=== PATIENT | male | born 1940 | race Caucasian/White ===

== ENCOUNTER 2016-06-29 17:16 | Inpatient (IN) | payer OTHER ==
[2016-06-29] MEDS ORDERED: SALINE 3% 15 ML NEB TX ONE (18:01)
[2016-06-29] MEDS ORDERED: SALINE 3% 15 ML NEB TX NEB ONE (18:03)
[2016-06-29] MEDS: XOPENEX 1.25 MG/3 ML NEB SCH ×2 (18:13→20:50)
[2016-06-29] MEDS: ZITHROMAX INJ 500 MG VIAL 500 MG in NS 250 ML IV 250 ML IV SCH (18:50)
[2016-06-29] MEDS: NS 1000 ML 1,000 ML IV SCH (18:50)
[2016-06-29 18:56] LABS: BASOPHILS % (AUTO) 0.4 % (0.2-1.0); EOSINOPHILS # (AUTO) 0.1 x10^3/uL (0.0-0.2); EOSINOPHILS % (AUTO) 0.5 % (0.9-2.9); HEMATOCRIT 39.2 % (42.0-54.0); HEMOGLOBIN 12.9 g/dL (13.5-18.0); LYMPHOCYTES # (AUTO) 1.3 X10^3/uL (1.3-2.9); MEAN CORPUSCULAR HEMOGLOBIN 25.3 pg (27.0-34.0); MEAN CORPUSCULAR VOLUME 76.7 fL (80.0-100.0); MEAN PLATELET VOLUME 8.1 fL (7.4-11.0); MONOCYTES # (AUTO) 3.1 x10^3/uL (0.3-0.8); MONOCYTES % (AUTO) 31.1 % (0.0-13.0); NEUTROPHILS # (AUTO) 5.5 x10^3/uL (2.2-4.8); PLATELET COUNT 212 X10^3/uL (150.0-450.0); RED BLOOD COUNT 5.11 X10^6/uL (4.7-6.0); RED CELL DISTRIBUTION WIDTH 23.2 % (11.6-16.5)
[2016-06-29 19:06] LABS: ALANINE AMINOTRANSFERASE 19 Units/L (12-78); ALBUMIN 3.1 g/dL (3.4-5.0); ALKALINE PHOSPHATASE 61 Units/L (46-116); ASPARTATE AMINO TRANSFERASE 12 Units/L (15-37); BLOOD UREA NITROGEN 12 mg/dL (7-18); CALCIUM 8.5 mg/dL (8.5-10.1); CARBON DIOXIDE 27.4 mmol/L (21-32); CHLORIDE 103 mmol/L (98-107); COR CA(FOR HYPOALB) 9.2 mg/dL (8.5-10.1); CREATININE 0.91 mg/dL (0.70-1.30); GLUCOSE 96 mg/dL (65-99); SODIUM 138 mmol/L (136-145); TOTAL PROTEIN 6.4 g/dL (6.4-8.2); eGFR BLACK RACES > 60 (>60); eGFR NON BLACK RACES > 60 (>60)
[2016-06-29 19:10] LABS: BAND NEUTROPHILS % 10 % (0-10)
[2016-06-29 19:11] LABS: HYPOCHROMASIA SLIGHT; METAMYELOCYTES % 3; MYELOCYTES % 5; PLATELET MORPHOLOGY COMMENT NORMAL (NORMAL)
[2016-06-29 19:12] LABS: ANISOCYTOSIS 2+
[2016-06-29] MEDS: LEVAQUIN PREMIX IV 500 MG 500 MG/100 ML BAG IV SCH (21:25)
[2016-06-29] MEDS: SOLU-Medrol 40 MG VIAL IVP SCH (21:25)
--- NOTE | 2016-06-30 04:41 | RAD ---
Chest, two views Indication: Bronchitis Comparison: 12/04/2015 Findings: Cardiac silhouette is unremarkable. The lungs are mildly hypoinflated, but essentially bridgett ar, without dense infiltrate or large pleural effusion. The bony thorax is unremarkable. Impression: No acute cardiopulmonary disease or significant change from prior. Reported By:
[2016-06-30 04:57] LABS: BASOPHILS % (AUTO) 0.1 % (0.2-1.0); EOSINOPHILS % (AUTO) 0.1 % (0.9-2.9); HEMATOCRIT 39.8 % (42.0-54.0); HEMOGLOBIN 12.9 g/dL (13.5-18.0); LYMPHOCYTES # (AUTO) 0.4 X10^3/uL (1.3-2.9); LYMPHOCYTES % (AUTO) 6.8 % (21.0-51.0); MEAN CORPUSCULAR HEMOGLOBIN 25.3 pg (27.0-34.0); MEAN CORPUSCULAR HGB CONC 32.6 g/dL (33.0-35.0); MEAN CORPUSCULAR VOLUME 77.7 fL (80.0-100.0); MEAN PLATELET VOLUME 8.5 fL (7.4-11.0); MONOCYTES # (AUTO) 0.4 x10^3/uL (0.3-0.8); MONOCYTES % (AUTO) 7.5 % (0.0-13.0); NEUTROPHILS # (AUTO) 4.5 x10^3/uL (2.2-4.8); NEUTROPHILS % (AUTO) 85.5 % (42.0-75.0); PLATELET COUNT 196 X10^3/uL (150.0-450.0); RED BLOOD COUNT 5.12 X10^6/uL (4.7-6.0); WHITE BLOOD COUNT 5.3 X10^3/uL (3.6-10.0)
[2016-06-30 05:09] LABS: ALANINE AMINOTRANSFERASE 18 Units/L (12-78); ALBUMIN 2.8 g/dL (3.4-5.0); ALKALINE PHOSPHATASE 57 Units/L (46-116); ASPARTATE AMINO TRANSFERASE 11 Units/L (15-37); BLOOD UREA NITROGEN 12 mg/dL (7-18); CALCIUM 8.5 mg/dL (8.5-10.1); CARBON DIOXIDE 26.8 mmol/L (21-32); CHLORIDE 107 mmol/L (98-107); COR CA(FOR HYPOALB) 9.5 mg/dL (8.5-10.1); COR NA(FOR HYPERGLY) 144 mmol/L (136-145); CREATININE 0.81 mg/dL (0.70-1.30); GLUCOSE 156 mg/dL (65-99); SODIUM 143 mmol/L (136-145); TOTAL PROTEIN 6.2 g/dL (6.4-8.2); eGFR BLACK RACES > 60 (>60); eGFR NON BLACK RACES > 60 (>60)
[2016-06-30 05:53] LABS: ANISOCYTOSIS 2+; BAND NEUTROPHILS % 8 % (0-10); PLATELET MORPHOLOGY COMMENT NORMAL (NORMAL)
[2016-06-30] MEDS: SOLU-Medrol 40 MG VIAL IVP SCH ×2 (06:05→14:06)
[2016-06-30] MEDS: LEVAQUIN PREMIX IV 500 MG 500 MG/100 ML BAG IV SCH (08:31)
[2016-06-30] MEDS: ZITHROMAX INJ 500 MG VIAL 500 MG in NS 250 ML IV 250 ML IV SCH (08:31)
[2016-06-30] MEDS: XOPENEX 1.25 MG/3 ML NEB SCH ×5 (08:36→20:48)
[2016-06-30] MEDS: PATIENT'S HOME MEDICATION PO SCH ×2 (09:41→21:41)
[2016-06-30] MEDS ORDERED: COUMADIN TAB 2.5 MG PO SCH (11:00)
[2016-06-30] MEDS ORDERED: ARTIFICIAL TEARS DROPS AFFEYE PRN (11:27)
[2016-06-30] MEDS ORDERED: [UNRECOGNIZED DRUG - OTHER] OP SCH (11:30)
[2016-06-30] MEDS ORDERED: [UNRECOGNIZED DRUG - OTHER] PO SCH (11:30)
[2016-06-30] MEDS ORDERED: FLUTICASONE FUROATE SCH (11:30)
[2016-06-30] MEDS ORDERED: [UNRECOGNIZED DRUG - OTHER] PO SCH (11:30)
[2016-06-30] MEDS ORDERED: [UNRECOGNIZED DRUG - OTHER] PO SCH (11:30)
--- NOTE | 2016-06-30 11:31 | DR.H&P ---
H&P - History & Physical for Day of: H&P Date: 06/29/16 - Chief Complaint Chief Complaint: fever, ccc - Allergies Allergies/Adverse Reactions: Allergies Allergy/AdvReac Type Severity Reaction Status Date / Time Allopurinol Allergy Verified 06/29/16 18:00 Diltiazem Allergy Verified 06/29/16 18:14 - History of Present Illness History of Present Illness: PT WAS A DIRECT ADMIT PER DR RANGEL AFTER FAILING TO IMPROVE WITH OP TREATMENT OF SINUSITIS AND COUGH. PT HAS BEEN TAKING ORAL ANTIBIOTICS AND USING JET NEBS SINCE LAST THURSDAY. PT HAS CO FEVER, CHILLS AND BODYACHES, PROGRESSING COUGH AND WHEEZING. PT HAS RECENTLY UNDERWENT CARDIAC ABLATION PROCEDURE DUE TO AFIB. PT HAS PMH OF AFIB ON COUMADIN, COPD, AND ASPERGILLUS LUNG INFECTION. PLAN TO ADMIT FOR EVALUATION OF ACUTE ILLNESS, WILL OBTAIN BLOOD AND SPUTUM CULTURES ON ADMISSION. - Past Medical History Past Medical History: Arthritis, COPD, Coronary Artery Disease, Depression, GERD , Gout, Hypertension Additional Medical History: ATOPIC DERMATITIS - Past Surgical History Surgical History: Cholecystectomy, Tonsillectomy - Family History Family Medical History: [place], Hypertension - Social History Does patient currently use any type of tobacco product: No Have you used tobacco products in the last 12 months: No Type of Tobacco Use: None How many years tobacco product used: 5 Alcohol Use: None Drug Use: None - Medications Home Medications: Artificial Tear Solution [Genteal Tears Liquid Drop 0.1-0.2-0.3 %] 1 padma OP BID 06/29/16 [History Confirmed 06/29/16] Finasteride [Proscar] 5 mg PO HS 06/29/16 [History Confirmed 06/29/16] Fluticasone Furoate [Flonase Sensimist] 27.5 mcg NA BID 06/29/16 [History Confirmed 06/29/16] Folic Acid [Folic Acid Tab 1 mg] 1 mg PO DAILY 06/29/16 [History Confirmed 06/29] Krill Oil [Gnp Krill Oil [place]-3 300 mg] 1 cap PO DAILY 06/29/16 [History Confirmed 06/29/16] Magnesium [Magnesium] 400 mg PO DAILY 06/29/16 [History Confirmed 06/29/16] Metoprolol Succinate [Toprol Xl] 50 mg PO BID 06/29/16 [History Confirmed ] Polyethylene Glycol Pwd Btl [MIRALAX. (255 GM BOTTLE) *] 17 gm PO HS 06/29/16 [ History Confirmed 06/29/16] Terazosin HCl [Hytrin] 5 mg PO HS 06/29/16 [History Confirmed 06/29/16] Voriconazole 100 mg PO BID 06/29/16 [History Confirmed 06/29/16] Warfarin Sodium [Coumadin Tab 2.5 mg] 2.5 mg PO DAILY 06/29/16 [History Confirmed 06/29/16] - Review of Systems Constitutional: Fever, Chills, Sweats, Weakness, Malaise Eyes: No Symptoms Reported ENT: Nose Pain, Nose Discharge, Throat Pain Respiratory: Cough, Wheezing Cardiovascular: No Symptoms Reported Gastrointestinal: Nausea Musculoskeletal: No Symptoms Reported Skin: Other (CHRONIC SEVERE DRY SKIN, PRURITIS) Neurological: No Symptoms Reported - Physical Exam Vital Signs: Temperature 97.5 F Pulse Rate [Left Brachial] 60 Pulse Rate [Right Brachial] 56 Pulse Rate 74 Respiratory Rate 18 Blood Pressure [Left Arm] 181/86 Blood Pressure [Right Arm] 145/73 Blood Pressure 123/82 O2 Sat by Pulse Oximetry 97 Oriented: Normal Eyes: Normal Ear: Normal Nose: Normal Throat: Red, Dry Respiratory: Rhonchi Throughout, RLL Diminished, LLL Diminished Cardiovascular: Normal. negative: Edema : Normal Auscultation: Bowel Sounds: Normal Palpation: Normal Tenderness: Normal Skin: Other (DRY) Musculoskeletal: Back:Lumbar Psychiatric: Normal Mood Description: Calm Speech Pattern: Clear, Appropriate - Assessment/Plan (1) Aspergillus Status: Acute (2) Bronchitis Status: Acute Plan: ADMIT, PNEUMONIA PATHWAY, ADMISSION LABS, BLOOD AND SPUTUM CULTURES. REPT THERAPY. XRAY CHEST ON ADMISSION. IV ATBX, IV STEROIDS, IV HYDRATION. FEVER CONTROL, RESUME HOME MEDS (3) Failure of outpatient treatment Status: Acute (4) Atrial fibrillation status post cardioversion Status: Chronic (5) Essential hypertension Status: Chronic (6) GERD (gastroesophageal reflux disease) Qualifiers: Esophagitis presence: E Status: Chronic
[2016-06-30] MEDS ORDERED: MAG-OX TAB PO SCH (12:00)
[2016-06-30] MEDS: FLONASE NASAL SPRAY ENOSTRIL SCH ×2 (12:03→21:39)
[2016-06-30] MEDS: TOPROL XL PO SCH ×2 (12:04→21:41)
[2016-06-30] MEDS: FOLIC ACID TAB 1 MG PO SCH (12:04)
[2016-06-30] MEDS: MAG-OX TAB PO SCH (12:05)
[2016-06-30] MEDS: NS 1000 ML 1,000 ML IV SCH (17:26)
[2016-06-30] MEDS: COUMADIN TAB 2.5 MG PO SCH (21:39)
[2016-06-30] MEDS: HYTRIN PO SCH (21:40)
[2016-06-30] MEDS: PROSCAR PO SCH (21:41)
[2016-06-30] MEDS: MIRALAX POWDER (255 GM BTL) PO SCH (21:45)
[2016-06-30] MEDS: ARTIFICIAL TEARS DROPS AFFEYE SCH (21:53)
[2016-07-01 05:35] LABS: BASOPHILS % (AUTO) 0.1 % (0.2-1.0); HEMATOCRIT 41.4 % (42.0-54.0); HEMOGLOBIN 13.4 g/dL (13.5-18.0); LYMPHOCYTES # (AUTO) 0.5 X10^3/uL (1.3-2.9); LYMPHOCYTES % (AUTO) 4.1 % (21.0-51.0); MEAN CORPUSCULAR HEMOGLOBIN 25.2 pg (27.0-34.0); MEAN CORPUSCULAR HGB CONC 32.4 g/dL (33.0-35.0); MEAN CORPUSCULAR VOLUME 77.9 fL (80.0-100.0); MEAN PLATELET VOLUME 8.5 fL (7.4-11.0); MONOCYTES # (AUTO) 0.8 x10^3/uL (0.3-0.8); MONOCYTES % (AUTO) 7.4 % (0.0-13.0); NEUTROPHILS # (AUTO) 9.8 x10^3/uL (2.2-4.8); NEUTROPHILS % (AUTO) 88.4 % (42.0-75.0); PLATELET COUNT 262 X10^3/uL (150.0-450.0); RED BLOOD COUNT 5.31 X10^6/uL (4.7-6.0); RED CELL DISTRIBUTION WIDTH 22.9 % (11.6-16.5)
[2016-07-01 05:40] LABS: ALANINE AMINOTRANSFERASE 19 Units/L (12-78); ALKALINE PHOSPHATASE 58 Units/L (46-116); ASPARTATE AMINO TRANSFERASE 13 Units/L (15-37); BLOOD UREA NITROGEN 18 mg/dL (7-18); CALCIUM 8.6 mg/dL (8.5-10.1); CARBON DIOXIDE 25.9 mmol/L (21-32); CHLORIDE 105 mmol/L (98-107); COR CA(FOR HYPOALB) 9.4 mg/dL (8.5-10.1); COR NA(FOR HYPERGLY) 142 mmol/L (136-145); CREATININE 0.89 mg/dL (0.70-1.30); GLUCOSE 162 mg/dL (65-99); SODIUM 141 mmol/L (136-145); TOTAL PROTEIN 6.6 g/dL (6.4-8.2); eGFR BLACK RACES > 60 (>60); eGFR NON BLACK RACES > 60 (>60)
[2016-07-01 05:52] LABS: ANISOCYTOSIS 2+; PLATELET MORPHOLOGY COMMENT NORMAL (NORMAL)
--- NOTE | 2016-07-01 06:33 | CT ---
HISTORY: Shortness of breath Study: CT chest without contrast Comparison: None Technique: Axial non contrast images with coronal and sagittal reformats. Dose reduction procedures were used with MA/kv adjusted for body size. Findings: Examination of the mediastinum demonstrated no evidence for mediastinal masses, enlarged mediastinal adenopathy or enlarged hilar adenopathy. Scattered nonenlarged nodes are present. The heart is enla rged. Small bilateral pleural effusions are identified. No chest wall or axillary abnormality is brooklynn ntified. Those portions of the upper abdominal organs visualized were within normal limits to the li mitations of an unenhanced examination with the exception of bilateral nonobstructing renal calculi. Examination of the lung bishop demonstrated mild hyperinflation to be present. Mild atelectatic kym nges are present in the lung bases. No acute alveolar infiltrates, significant nodules, masses, karen bronchial thickening, or bronchiectasis is identified. IMPRESSION: Lungs mildly hyperinflated but clear Minimal bilateral pleural effusions. Cardiomegaly Bilateral nonobstructing renal calculi Reported By:
[2016-07-01] MEDS: PATIENT'S HOME MEDICATION PO SCH ×2 (08:15→20:58)
[2016-07-01] MEDS: TOPROL XL PO SCH ×2 (08:15→21:01)
[2016-07-01] MEDS: FOLIC ACID TAB 1 MG PO SCH (08:15)
[2016-07-01] MEDS: MAG-OX TAB PO SCH (08:15)
[2016-07-01] MEDS: ZITHROMAX INJ 500 MG VIAL 500 MG in NS 250 ML IV 250 ML IV SCH (08:15)
[2016-07-01] MEDS: LEVAQUIN PREMIX IV 500 MG 500 MG/100 ML BAG IV SCH (08:15)
[2016-07-01] MEDS: XOPENEX 1.25 MG/3 ML NEB SCH ×4 (08:18→21:06)
[2016-07-01] MEDS: ARTIFICIAL TEARS DROPS AFFEYE SCH ×2 (09:59→20:58)
[2016-07-01] MEDS: FLONASE NASAL SPRAY ENOSTRIL SCH ×2 (09:59→20:58)
[2016-07-01] MEDS ORDERED: LASIX IVP SCH (14:00)
--- NOTE | 2016-07-01 15:37 | RAD ---
HISTORY: Abdominal pain Study: Acute abdominal series Comparison: June 29, 2016 Findings: The trachea is midline. The cardiac silhouette is enlarged. No congestive heart failure is noted.. The lungs are clear without focal infiltrate or effusion. The bony thorax is unremarkable. Flat plate and upright evaluation of the abdomen demonstrates a normal bowel gas pattern. No pneumop eritoneum is identified.. No pathological soft tissue mass can be observed. There is a 5 millimete r right renal calculus present. The bony structures are grossly intact. IMPRESSION: 1. Cardiomegaly without congestive heart failure 2. No evidence for acute abdominal pathology identified. 3. 5 millimeter right renal calculus Reported By:
[2016-07-01] MEDS ORDERED: LEVSIN/MAALOX/LIDOC VISC PO PRN (18:28)
[2016-07-01] MEDS ORDERED: TUSSIONEX PENNKINETIC SUSP PO PRN (18:32)
--- NOTE | 2016-07-01 18:32 | PCM.PROG ---
Progress Note - Progress Note for Day of Date: 07/01/16 - Subjective Subjective: 76 WM ADMITTED ON 06/28 WITH FEVER AND AB. PT HAS IMPROVED FEVER AND WEAKENSS, CONTINUES PRODUCTIVE COUGH AND CO ABDOMINAL PAIN TODAY - Past Medical Family Social History Past Med/Fam/Surg Hx: No changes since H&P Allergies: Allergies Allopurinol Allergy (Verified 06/29/16 18:00) Diltiazem Allergy (Verified 06/29/16 18:14) - Review of Systems ROS: No change since H&P - Vital Signs and I&O's Vital Signs: Temperature 97.5 F Pulse Rate [Left Brachial] 62 Pulse Rate [Right Brachial] 56 Pulse Rate 69 Respiratory Rate 20 Blood Pressure [Left Arm] 179/86 Blood Pressure [Right Arm] 145/73 Blood Pressure 123/82 O2 Sat by Pulse Oximetry 96 Intake and Output: Intake & Output 06/29/16 06/30/16 07/01/16 07/02/16 11:59 11:59 11:59 11:59 Intake Total 383 3977 1080 Balance 383 3977 1080 - Physical Exam Oriented: Normal Eyes: Normal Ear: Normal Nose: Normal Throat: Red, Dry Cardiovascular: Normal. negative: Edema : Normal Auscultation: Bowel Sounds: Normal Tenderness: LUQ, Epigastric Skin: Other (DRY) Musculoskeletal: Back:Lumbar Psychiatric: Normal Mood Description: Calm Speech Pattern: Clear, Appropriate - Laboratory and Diagnostics Result Diagrams: 07/01/16 04:10 07/01/16 04:10 Labs: 06/29/16 18:20 Blood Blood Culture - Preliminary 06/29/16 18:10 Blood Blood Culture - Preliminary 06/29/16 19:29 Sputum - Expectorated Sputum Sputum Culture - Final 06/29/16 19:29 Sputum - Expectorated Sputum - Final Laboratory WBC 11.0 X10^3/uL (3.6-10.0) H 07/01/16 04:10 RBC 5.31 X10^6/uL (4.7-6.0) 07/01/16 04:10 Hgb 13.4 g/dL (13.5-18.0) L 07/01/16 04:10 Hct 41.4 % (42.0-54.0) L 07/01/16 04:10 MCV 77.9 fL (80.0-100.0) L 07/01/16 04:10 MCH 25.2 pg (27.0-34.0) L 07/01/16 04:10 MCHC 32.4 g/dL (33.0-35.0) L 07/01/16 04:10 RDW 22.9 % (11.6-16.5) H 07/01/16 04:10 Plt Count 262 X10^3/uL (150.0-450.0) 07/01/16 04:10 Plt Count Comment Adequate (ADEQUATE) 07/01/16 04:10 MPV 8.5 fL (7.4-11.0) 07/01/16 04:10 Neut % 88.4 % (42.0-75.0) H 07/01/16 04:10 Lymph % 4.1 % (21.0-51.0) L 07/01/16 04:10 [place] % 7.4 % (0.0-13.0) 07/01/16 04:10 Eos % 0.0 % (0.9-2.9) L 07/01/16 04:10 Baso % 0.1 % (0.2-1.0) L 07/01/16 04:10 Neut # 9.8 x10^3/uL (2.2-4.8) H 07/01/16 04:10 Lymph # 0.5 X10^3/uL (1.3-2.9) L 07/01/16 04:10 [place] # 0.8 x10^3/uL (0.3-0.8) 07/01/16 04:10 Eos # 0.0 x10^3/uL (0.0-0.2) 07/01/16 04:10 Baso # 0.0 X10^3/uL (0.0-0.1) 07/01/16 04:10 Absolute Nucleated RBC 0.3 /100WBC 07/01/16 04:10 Total Counted 100 06/30/16 03:25 Neutrophils % (Manual) 74 % (39-76) 06/30/16 03:25 Band Neutrophils % 8 % (0-10) 06/30/16 03:25 Lymphocytes % (Manual) 13 % (13-43) 06/30/16 03:25 Monocytes % (Manual) 5 % (4-9) 06/30/16 03:25 Eosinophils % (Manual) 1 % (0-6) 06/29/16 18:10 Metamyelocytes % 3 06/29/16 18:10 Myelocytes % 5 06/29/16 18:10 Atypical Lymphocytes 8 06/29/16 18:10 Plt Morphology Comment Normal (NORMAL) 07/01/16 04:10 RBC Morphology Abnormal (NORMAL) 07/01/16 04:10 Hypochromasia Slight A 06/29/16 18:10 Anisocytosis 2+ A 07/01/16 04:10 INR Target Range - 06/30/16 03:25 INR 1.74 (0.8-1.3) H 06/30/16 03:25 Sodium 141 mmol/L (136-145) 07/01/16 04:10 Corrected Sodium 142 mmol/L (136-145) 07/01/16 04:10 Potassium 3.8 mmol/L (3.5-5.1) 07/01/16 04:10 Chloride 105 mmol/L (98-107) 07/01/16 04:10 Carbon Dioxide 25.9 mmol/L (21-32) 07/01/16 04:10 BUN 18 mg/dL (7-18) 07/01/16 04:10 Creatinine 0.89 mg/dL (0.70-1.30) 07/01/16 04:10 Est GFR (MDRD) Af Amer > 60 (>60) 07/01/16 04:10 Est GFR (MDRD) Non-Af > 60 (>60) 07/01/16 04:10 Glucose 162 mg/dL (65-99) H 07/01/16 04:10 Calcium 8.6 mg/dL (8.5-10.1) 07/01/16 04:10 Corrected Calcium 9.4 mg/dL (8.5-10.1) 07/01/16 04:10 Total Bilirubin 0.40 mg/dL (0.2-1.0) 07/01/16 04:10 AST 13 Units/L (15-37) L 07/01/16 04:10 ALT 19 Units/L (12-78) 07/01/16 04:10 Alkaline Phosphatase 58 Units/L (46-116) 07/01/16 04:10 Total Protein 6.6 g/dL (6.4-8.2) 07/01/16 04:10 Albumin 3.0 g/dL (3.4-5.0) L 07/01/16 04:10 Globulin 3.6 g/dL (2.5-4.5) 07/01/16 04:10 Albumin/Globulin Ratio 0.8 Ratio (1.1-2.1) L 07/01/16 04:10 Influenza A (H1N1) PCR Not detected (NOT DETECT) 06/30/16 11:38 Influenza Type A (PCR) Negative (NEGATIVE) 06/30/16 11:38 Influenza Type B (PCR) Negative (NEGATIVE) 06/30/16 11:38 - Plan (1) Aspergillus Status: Acute (2) Bronchitis Status: Acute Plan: PNEUMONIA PATHWAY, ADMISSION LABS, BLOOD AND SPUTUM CULTURES. REPT THERAPY. XRAY Q AM. IV ATBX, IV STEROIDS, IV HYDRATION. FEVER CONTROL, RESUME HOME MEDS (3) Failure of outpatient treatment Status: Acute (4) Atrial fibrillation status post cardioversion Status: Chronic Plan: CONTINUE COUMADIN, CARDIAC MONITORING (5) Essential hypertension Status: Chronic (6) GERD (gastroesophageal reflux disease) Status: Chronic Qualifiers: Esophagitis presence: E Plan: PROTONIX, GI COCKTAIL (7) Abdominal pain Status: Acute Qualifiers: Abdominal location: A Plan: CONSTIPATION PREVENTION, PROTONIX, GI COCKTAIL. ABD KATIE MCARTHUR
[2016-07-01] MEDS: NS 1000 ML 1,000 ML IV SCH (20:15)
[2016-07-01] MEDS: COUMADIN TAB 2.5 MG PO SCH (20:58)
[2016-07-01] MEDS: PROTONIX INJ 40 MG VIAL IVP SCH (20:58)
[2016-07-01] MEDS: ROBITUSSIN (PLAIN) PO SCH (20:59)
[2016-07-01] MEDS ORDERED: COLACE CAP 100 MG PO SCH (21:00)
[2016-07-01] MEDS ORDERED: MIRALAX POWDER (1 DOSE 17GM) PO SCH (21:00)
[2016-07-01] MEDS: PROSCAR PO SCH (21:01)
[2016-07-01] MEDS: HYTRIN PO SCH (21:01)
[2016-07-01] MEDS: MIRALAX POWDER (255 GM BTL) PO SCH (21:02)
[2016-07-01] MEDS: PULMICORT NEB TX 0.5 MG NEB SCH (21:06)
[2016-07-02 05:23] LABS: ALANINE AMINOTRANSFERASE 18 Units/L (12-78); ALBUMIN 2.8 g/dL (3.4-5.0); ALKALINE PHOSPHATASE 54 Units/L (46-116); ASPARTATE AMINO TRANSFERASE 12 Units/L (15-37); BLOOD UREA NITROGEN 21 mg/dL (7-18); CALCIUM 8.4 mg/dL (8.5-10.1); CARBON DIOXIDE 25.6 mmol/L (21-32); CHLORIDE 107 mmol/L (98-107); COR CA(FOR HYPOALB) 9.4 mg/dL (8.5-10.1); COR NA(FOR HYPERGLY) 145 mmol/L (136-145); GLUCOSE 129 mg/dL (65-99); SODIUM 144 mmol/L (136-145); eGFR BLACK RACES > 60 (>60); eGFR NON BLACK RACES > 60 (>60)
[2016-07-02 05:26] LABS: BASOPHILS % (AUTO) 0.2 % (0.2-1.0); HEMATOCRIT 40.3 % (42.0-54.0); LYMPHOCYTES % (AUTO) 8.1 % (21.0-51.0); MEAN CORPUSCULAR HEMOGLOBIN 25.1 pg (27.0-34.0); MEAN CORPUSCULAR HGB CONC 32.3 g/dL (33.0-35.0); MEAN CORPUSCULAR VOLUME 77.7 fL (80.0-100.0); MEAN PLATELET VOLUME 8.4 fL (7.4-11.0); MONOCYTES # (AUTO) 1.3 x10^3/uL (0.3-0.8); MONOCYTES % (AUTO) 9.7 % (0.0-13.0); NEUTROPHILS # (AUTO) 10.7 x10^3/uL (2.2-4.8); PLATELET COUNT 302 X10^3/uL (150.0-450.0); RED BLOOD COUNT 5.18 X10^6/uL (4.7-6.0); RED CELL DISTRIBUTION WIDTH 23.5 % (11.6-16.5)
[2016-07-02 05:59] LABS: BAND NEUTROPHILS % 15 % (0-10)
[2016-07-02 06:00] LABS: ANISOCYTOSIS 2+; PLATELET MORPHOLOGY COMMENT NORMAL (NORMAL)
--- NOTE | 2016-07-02 06:37 | RAD ---
HISTORY: Bronchitis, shortness of breath Study: Chest one view Comparison: July 01, 2016 Findings: The heart is enlarged. No congestive heart failure is noted. No acute alveolar infiltrates or pleura l effusions are identified. The bony thorax is unremarkable. IMPRESSION: Cardiomegaly without congestive heart failure Lungs clear Reported By:
[2016-07-02] MEDS: XOPENEX 1.25 MG/3 ML NEB SCH ×2 (09:09→12:15)
[2016-07-02] MEDS: PULMICORT NEB TX 0.5 MG NEB SCH (09:09)
[2016-07-02] MEDS: ZITHROMAX INJ 500 MG VIAL 500 MG in NS 250 ML IV 250 ML IV SCH (09:15)
[2016-07-02] MEDS: LEVAQUIN PREMIX IV 500 MG 500 MG/100 ML BAG IV SCH (09:16)
[2016-07-02] MEDS: ROBITUSSIN (PLAIN) PO SCH ×2 (09:16→13:06)
[2016-07-02] MEDS: PROTONIX INJ 40 MG VIAL IVP SCH (09:16)
[2016-07-02] MEDS: TOPROL XL PO SCH (09:17)
[2016-07-02] MEDS: MAG-OX TAB PO SCH (09:17)
[2016-07-02] MEDS: PATIENT'S HOME MEDICATION PO SCH (09:17)
[2016-07-02] MEDS: FOLIC ACID TAB 1 MG PO SCH (09:17)
[2016-07-02] MEDS: ARTIFICIAL TEARS DROPS AFFEYE SCH (09:20)
[2016-07-02] MEDS: FLONASE NASAL SPRAY ENOSTRIL SCH (09:20)
[2016-07-02 12:27] VITALS: BP 170/87
== END 2016-07-02 14:50 | disposition home or self-care (01) | DRG 202 ==
LOC: MED/SURG 17:16
PROVIDERS: ADMIT Internal Medicine; ATTEND Internal Medicine
DX: J20.8 Acute bronchitis due to other specified organisms (principal); R50.9 Fever, unspecified; J32.8 Other chronic sinusitis; I48.91 Unspecified atrial fibrillation; Z79.01 Long term (current) use of anticoagulants; J44.9 Chronic obstructive pulmonary disease, unspecified; M13.89 Other specified arthritis, multiple sites; I25.10 Atherosclerotic heart disease of native coronary artery without angina pectoris; K21.9 Gastro-esophageal reflux disease without esophagitis; I10 Essential (primary) hypertension; B44.7 Disseminated aspergillosis; R10.84 Generalized abdominal pain
CPT/HCPCS: 36415; 71010; 71020; 71250; 74022; 80053; 85025; 85610; 87040; 87070; 87205; 87502; 87503; 94640; 94760; A4222; C9113; S0138; J0456; J1940; J1956; J2920; J7626

== ENCOUNTER → 2016-11-04 | Outpatient (CLI) | payer OTHER ==
--- NOTE | 2016-11-05 09:24 | MRI ---
STUDY: MRI OF THE BRAIN WITHOUT GADOLINIUM HISTORY: Abnormality of gait. Weakness. Fatigue. Technique: Multiplanar multi-sequence MRI of the brain was obtained utilizing standard departmental protocol. Sagittal and axial T1, axial T2, FLAIR, diffusion (DWI/ADC) images through the brain were performed. Comparison: None. Findings: The sulci, cisterns and ventricles are prominent consistent with diffuse volume loss. There are conf luent and scattered foci of T2 prolongation in the periventricular and subcortical white matter of b oth hemispheres. This is a nonspecific finding which likely represents microangiopathic change in a patient of this age. There is no evidence of acute territorial infarction, hemorrhage, mass, mass effect, or midline shif t. There are no abnormal intra-axial or extra-axial fluid collections. The major intracranial vascu lar flow voids appear intact. The right vertebral artery appears dominant. There is bilateral aphaki a. IMPRESSION: 1. No evidence of acute intracranial abnormality. 2. Nonspecific white matter change and volume loss. Reported By:
--- NOTE | 2016-11-05 09:40 | MRI ---
STUDY: MRA OF THE BRAIN HISTORY: Abnormalities of gait. Weakness. Fatigue. Comparison: None. Technique: 3D [id number] imaging of the intracranial circulation was performed. Findings: 3D [id number] MRA examination shows normal flow related enhancement in the major intracranial ar teries. There is no evidence of hemodynamically significant stenosis or aneurysm. There is a posteri or communicating artery on the left. The right vertebral artery is dominant. IMPRESSION: 1. Normal MRA of the brain. Reported By:
--- NOTE | 2016-11-05 09:44 | US ---
HISTORY: Right axillary pain and swelling Study: Ultrasound right axilla Comparison: None Technique: Multiple grayscale sonographic images were obtained. Findings: Sonographic evaluation was focused to the patient's symptomatic right axilla. Within the axilla ther e is an ill-defined 3.3 by a 1.3 centimeter area which is slightly sonolucent with respect to the ad jacent tissues. It is certainly not a simple cyst. It could represent an area of induration or an ab scess. CT with contrast may be of further diagnostic value. No adenopathy is identified. IMPRESSION: Ill-defined area of sonolucency measuring 3.3 x 1.3 centimeter in the right axilla possibly represen ting an area of induration or possibly an abscess. CT with contrast may be of further diagnostic josé miguel ue. Reported By:
== END | disposition home or self-care (01) | DRG 93 ==
LOC: RAD 15:00
PROVIDERS: ATTEND Nurse Practitioner Family
DX: R26.89 Other abnormalities of gait and mobility (principal); R53.1 Weakness; R22.2 Localized swelling, mass and lump, trunk
CPT/HCPCS: 70544; 70551

== ENCOUNTER → 2016-11-11 | Outpatient (CLI) | payer OTHER ==
[~2016-11-11] MED LIST: NS 100 ML IV 100 ML IV ONE
[2016-11-11 14:19] LABS: CREATININE 0.94 mg/dL (0.70-1.30)
--- NOTE | 2016-11-12 09:30 | CT ---
HISTORY: Right axillary mass Study: CT chest with IV contrast Comparison: Ultrasound of the right axilla done November 04, 2016 Technique: Multiple axial images of the chest were obtained from the thoracic inlet to the upper abdo men during the administration of IV contrast. Coronal and sagittal images are also reviewed. Dose red uction techniques utilized automatic exposure control. Findings: The mediastinum does not demonstrate significant pathological lymphadenopathy. There is no pericardi al effusion observed. The thoracic aorta is normal in its contour without evidence for aneurysmal di latation. there is an a left atrial appendage clamp present. The central pulmonary arterial system d oes not demonstrate central filling defects to suggest pulmonary emboli. Evaluation of the lung parenchyma very tiny foci of interstitial lung disease is seen involving the l meagan bases posteriorly. No dense consolidation is seen. Small bilateral pleural effusions are present more pronounced on the right side.. The bony thorax is unremarkable in its appearance. The visual ized portions of the upper abdomen are grossly unremarkable. There is a increased attenuation density present within the fat of the lower right axillary region. This is somewhat difficult to measure due to the indistinct margins but measures approximately 3.5 x 4.7 x 6 centimeters. There is some surrou nding fat reticulation and minor, reactive appearing lymph nodes present in this region. The nature o f this mass is not readily apparent. This may represent an area of inflammation. There is no indicati on of of intra thoracic extent. This could be followed with ultrasound. If the mass does not carlos wi th conventional treatment, biopsy could be performed percutaneously. IMPRESSION: Ill-defined right axillary mass with some associated fat reticulation and reactive appearing adjacent lymph nodes. This may represent an area of inflammation. There is no indication of intra thoracic ex tent. I suggest that this be followed with ultrasound. If the mass does not carlos with conventional t reatment, biopsy could be performed percutaneously. Reported By:
== END ==
LOC: RAD 13:57
PROVIDERS: ATTEND Internal Medicine
DX: R22.2 Localized swelling, mass and lump, trunk (principal); I88.9 Nonspecific lymphadenitis, unspecified
CPT/HCPCS: 36415; 71260; 82565; 84520; A4222

== ENCOUNTER 2016-11-14 10:57 | Inpatient (IN) | payer OTHER ==
--- NOTE | 2016-11-14 12:31 | DR.H&P ---
H&P - History & Physical for Day of: H&P Date: 11/14/16 - Chief Complaint Chief Complaint: right mass to underarm, right arm pain - Allergies Allergies/Adverse Reactions: Allergies Allergy/AdvReac Type Severity Reaction Status Date / Time MS Allopurinol [Allopurinol] Allergy Verified 06/29/16 18:00 MS Diltiazem [Diltiazem] Allergy Verified 06/29/16 18:14 - History of Present Illness History of Present Illness: 76 WM DIRECT ADMIT FROM DR RANGEL OFFICE FOR TREATMENT OF POSSIBLE ABSCESS TO RIGHT AXILLARY. PT HAS HAD US AND CT OF CHEST W /O CLARIFICATION MASS. PT HAS BEEN TREATED WITH PO CLINDAMYCIN AND DOXY WITHOUT IMPROVEMENT OF PAIN. PT HAS HAD THICK YELLOW DC STARTED DRAINING THIS WEEK, CULTURE COLLECTED IN OFFICE ON 11/11. STAPHY AUREUS AND CORYNEBACTERIUM SPECIES. PLAN TO ADMIT FOR IV VANCOMYCIN, SURGICAL CONSULT. BLOOD CULTURES AND REPEAT WOUND CULTURES. - Past Medical History Past Medical History: Arthritis, COPD, Coronary Artery Disease, Depression, GERD , Gout, Hypertension Additional Medical History: ATOPIC DERMATITIS - Past Surgical History Surgical History: Cholecystectomy, Tonsillectomy - Family History Family Medical History: [place], Hypertension - Social History Does patient currently use any type of tobacco product: No Have you used tobacco products in the last 12 months: No Type of Tobacco Use: None Does any household member use tobacco: No Alcohol Use: None Drug Use: None - Review of Systems Constitutional: Chills, Weakness Eyes: No Symptoms Reported ENT: No Symptoms Reported Respiratory: No Symptoms Reported Cardiovascular: denies: Chest Pain Gastrointestinal: Nausea Genitourinary: No Symptoms Reported Musculoskeletal: No Symptoms Reported Skin: Wound Neurological: No Symptoms Reported - Physical Exam Vital Signs: Blood Pressure [Left Arm] 170/87 Blood Pressure [Right Arm] 166/87 Blood Pressure 170/87 Oriented: Normal Eyes: Normal Ear: Normal Nose: Normal Throat: Normal Respiratory: RLL Diminished, LLL Diminished Cardiovascular: Normal : Normal Auscultation: Bowel Sounds: Normal Palpation: Normal Tenderness: Normal Skin: Red (3.5 - 4CM RIGHT AXILLARY MASS WITH SEVERE TENDERNESS AND LOCALIZED LYMPADENOPATHY, REDNESS AND PURULENT D/C), Tender, Hot Musculoskeletal: Right, Shoulder Psychiatric: Normal Mood Description: Calm Speech Pattern: Clear - Assessment/Plan (1) Axillary mass Status: Acute Plan: ADMIT,. WOUND CULTURE, WOUND CARE, SURGICAL CONSULT. REPEAT AXILLARY US , BLOOD CULTURES, ADMISSION LABS. IV VANCOMYCIN, RESUME HOME MEDS. ADMISSION EKG, CXR. PT/INR LEVELS (2) Axillary abscess Status: Acute (3) Hx of atrial fibrillation without current medication Status: Acute (4) COPD (chronic obstructive pulmonary disease) Status: Acute (5) Essential hypertension Status: Chronic (6) Cellulitis of arm, right Status: Acute
[2016-11-14] MEDS ORDERED: PHARMACY CONSULT - VANCOMYCIN XX SCH (12:43)
[2016-11-14 13:29] LABS: ALANINE AMINOTRANSFERASE 16 Units/L (12-78); ALBUMIN 3.2 g/dL (3.4-5.0); ALKALINE PHOSPHATASE 59 Units/L (46-116); ASPARTATE AMINO TRANSFERASE 12 Units/L (15-37); BLOOD UREA NITROGEN 15 mg/dL (7-18); CALCIUM 9.2 mg/dL (8.5-10.1); CARBON DIOXIDE 31.7 mmol/L (21-32); CHLORIDE 108 mmol/L (98-107); COR CA(FOR HYPOALB) 9.8 mg/dL (8.5-10.1); CREATININE 0.89 mg/dL (0.70-1.30); SODIUM 142 mmol/L (136-145); TOTAL PROTEIN 6.6 g/dL (6.4-8.2); eGFR BLACK RACES > 60 (>60); eGFR NON BLACK RACES > 60 (>60)
[2016-11-14 13:35] LABS: BASOPHILS % (AUTO) 0.6 % (0.2-1.0); EOSINOPHILS # (AUTO) 0.2 x10^3/uL (0.0-0.2); EOSINOPHILS % (AUTO) 2.1 % (0.9-2.9); HEMATOCRIT 40.4 % (42.0-54.0); HEMOGLOBIN 13.8 g/dL (13.5-18.0); LYMPHOCYTES # (AUTO) 1.6 X10^3/uL (1.3-2.9); LYMPHOCYTES % (AUTO) 20.7 % (21.0-51.0); MEAN CORPUSCULAR HEMOGLOBIN 28.2 pg (27.0-34.0); MEAN PLATELET VOLUME 8.7 fL (7.4-11.0); MONOCYTES % (AUTO) 13.4 % (0.0-13.0); NEUTROPHILS # (AUTO) 4.8 x10^3/uL (2.2-4.8); NEUTROPHILS % (AUTO) 63.2 % (42.0-75.0); PLATELET COUNT 251 X10^3/uL (150.0-450.0); RED BLOOD COUNT 4.87 X10^6/uL (4.7-6.0); RED CELL DISTRIBUTION WIDTH 17.6 % (11.6-16.5); WHITE BLOOD COUNT 7.5 X10^3/uL (3.6-10.0)
[2016-11-14 14:01] LABS: ERYTHROCYTE SEDIMENTATION RATE 13 MM/HOUR (0-15)
[2016-11-14] MEDS: NS 1000 ML 1,000 ML IV SCH (14:54)
[2016-11-14] MEDS: COLACE CAP 100 MG PO SCH ×2 (14:57→21:38)
[2016-11-14] MEDS: VANCOMYCIN 1 GM PREMIX (ADDVANTAGE) 250 ML IV SCH ×2 (14:57→21:37)
[2016-11-14 15:22] VITALS: BMI 31.7
--- NOTE | 2016-11-14 17:23 | RAD ---
Chest, one view Indication: COPD, cough Comparison: 07/02/2016 Findings: Mild cardiac silhouette enlargement is unchanged. There is lung hypoinflation with resultan t interstitial crowding, although there is no overt edema, dense infiltrate, or large effusion. The b ellen thorax is unremarkable. Impression: Cardiomegaly without acute chest process. Reported By:
[2016-11-15] MEDS ORDERED: XYLOCAINE 1 % (PLAIN) ONE (08:16)
[2016-11-15] MEDS ORDERED: LR 1000 ML IV 1,000 ML IV ONE (08:16)
[2016-11-15] MEDS: VANCOMYCIN 1 GM PREMIX (ADDVANTAGE) 250 ML IV SCH ×2 (08:25→21:58)
[2016-11-15] MEDS ORDERED: FENTANYL INJ 100 mcg ONE (09:01)
[2016-11-15] MEDS ORDERED: MARCAINE 0.25% INJ ONE (09:25)
[2016-11-15] MEDS ORDERED: XYLOCAINE 1% and EPINEPHRINE 1:100,000 ONE (09:25)
--- NOTE | 2016-11-15 09:36 | DR.CONSULT ---
Consult - Consultation for Day of: Date: 11/14/16 - Chief Complaint Chief Complaint: Right axillary abscess. - Allergies Allergies/Adverse Reactions: Allergies Allergy/AdvReac Type Severity Reaction Status Date / Time adhesive tape AdvReac Verified 11/14/16 12:33 allopurinol AdvReac Verified 11/14/16 12:31 diltiazem AdvReac Verified 11/14/16 12:32 - History of Present Illness History of Present Illness: The patient is a 76 yo M who presented with persistent induration and drainage from the right axilllary region. The patient has been treated with PO antibiotics without significant improvement. ( +) h/o MRSA infections. An u/s on 11/04/16 showed a region on inflammation in the right axillae 3.3 x 1.3 cm. Later, a CT of the chest on 11/11/16 demonstrated a 3.5 x 4.7 x 6 cm abscess. The patient was admitted for IV abx. Surgery was consulted for incision and drainage. The patient is currently on anticoagulation. - Past Medical History Past Medical History: Arthritis, COPD, Coronary Artery Disease, Depression, GERD , Gout, Hypertension Additional Medical History: ATOPIC DERMATITIS - Past Surgical History Surgical History: Cholecystectomy, Tonsillectomy - Family History Family Medical History: [place], Hypertension - Social History Does patient currently use any type of tobacco product: No Have you used tobacco products in the last 12 months: No Type of Tobacco Use: None How many years tobacco product used: 60 Does any household member use tobacco: No Alcohol Use: None Drug Use: None - Medications Home Medications: Apixaban [Eliquis] 1 tab PO BID 11/14/16 [History Confirmed 11/14/16] Finasteride [PROSCAR 5 MG *] 1 tab PO HS 11/14/16 [History Confirmed 11/14/16] Levothyroxine Sodium [SYNTHROID 125 mcg *] 1 tab PO DAILY 11/14/16 [History Confirmed 11/14/16] Metoprolol Succinate Ext Rel [TOPROL XL 100 MG *] 1 tab PO DAILY 11/14/16 [ History Confirmed 11/14/16] Terazosin HCl [HYTRIN 5 MG (GENERIC) *] 1 tab PO HS 11/14/16 [History Confirmed 11/14/16] Triamcinolone Acet Crm 0.1% [TRIAMCINOLONE CREAM 0.1 %*] 1 applic TOP PRN PRN [History Confirmed 11/14/16] - Review of Systems Constitutional: Chills, Weakness Eyes: No Symptoms Reported ENT: No Symptoms Reported Respiratory: No Symptoms Reported, Other (Recent tx Aspergillosis.) Cardiovascular: No Symptoms Reported Gastrointestinal: Nausea Musculoskeletal: No Symptoms Reported Skin: See HPI Neurological: No Symptoms Reported - Physical Exam Vital Signs: Temperature 97.7 F Pulse Rate [Left Brachial] 48 Respiratory Rate 20 Blood Pressure [Left Arm] 164/76 Blood Pressure [Right Arm] 166/87 Blood Pressure 170/87 O2 Sat by Pulse Oximetry 96 Oriented: Normal Eyes: Normal Respiratory: Clear Throughout Cardiovascular: Irregular Auscultation: Bowel Sounds: Normal Palpation: Normal Tenderness: Normal Skin: Red, Tender ((R) axillae), Hot, Other (Purulent drainage (R) axillae with palpation.) Musculoskeletal: Normal Psychiatric: Normal Affect: Normal Speech Pattern: Clear - Plan Plan: 76 yo M with right axillary abscess. Significant induration with drainage on exam. Needs I&D. I do not think patient will tolerate at bedside and may need cautery due to recent anticoagulation. Hold anticoagulant and plan for I&D under [facility] in OR. Risk / benefits d/w patient. All questions answered. May require Bactroban and hibiclens showers x 1 week after resolution. Abx. per PCP - gram stain noted.
[2016-11-15] MEDS ORDERED: NS IRRIGATION 1000 ML 500 ML IR ONE (09:45)
--- NOTE | 2016-11-15 10:29 | OR.GENERIC ---
Post-Op Note Generic - Post-Op Note Operative Report: Date of Operation: November 15, 2016 Pre-Operative Diagnosis: Right axillary abscess (complex). Post-Operative Diagnosis: Right axillary abscess (complex). Procedure: Incision and drainage of right axillary abscess (complex). Surgeon: Abdulaziz Ceron MD. Anesthesia: Monitored anesthesia care and local. Regional Sales Consultant: Ruben Mcnair CRNA. Specimen: None. Estimated blood loss: Minimal. Complications: None. Summary: The patient is a 76 year old male who presented with a right axillary abscess. The patient was admitted to the hospital and surgery consulted. The patient was offered incision and drainage. The risk and benefits of the procedure including difficulty with anesthesia, bleeding, infection, scar formation, delayed healing, as well as recurrence were discussed with the patient. The patient understood these risks and requested the procedure. On November 15, 2016, the patient was brought to the operative theatre. A time out was performed verifying the patient and the procedure. After satisfactory induction of monitored anesthesia care, the right axillae was prepped with Chloraprep and draped in the usual fashion. Local anesthetic was infiltrated around the area of induration. A small core of skin was removed sharply. The abscess cavity was entered bluntly. Purulent drainage was noted. A portion of the abscess wall was removed using electrocautery to allow easier packing. All loculations were disrupted bluntly. Reactive lymph nodes were noted in the region. The abscess cavity was copiously irrigated. Next, the wound was packed with 2 Iodoform. A sterile dressing was placed. The patient was awakened and taken to the recovery room in stable condition. There were no complications. All counts were correct.
[2016-11-15] MEDS ORDERED: ZOFRAN INJ 4 MG VIAL IVP PRN (10:30)
[2016-11-15] MEDS: MORPHINE SULFATE INJ 2 MG INJ IVP PRN ×2 (11:10→18:28)
[2016-11-15] MEDS: PERCOCET TAB 5/325 MG PO PRN ×2 (12:17→18:35)
[2016-11-15] MEDS ORDERED: DIPRIVAN VIAL ONE (16:05)
[2016-11-15] MEDS ORDERED: TOPROL XL PO ONE (20:38)
[2016-11-15] MEDS: PROSCAR PO SCH (20:59)
[2016-11-15] MEDS: HYTRIN PO SCH (20:59)
[2016-11-15] MEDS: NS 1000 ML 1,000 ML IV SCH (20:59)
[2016-11-15] MEDS: TOPROL XL PO SCH (21:00)
[2016-11-15] MEDS: COLACE CAP 100 MG PO SCH (21:00)
[2016-11-15] MEDS: SYNTHROID 125 mcg TAB PO SCH (21:00)
[2016-11-15 21:39] LABS: CREATININE 1.08 mg/dL (0.70-1.30); VANCOMYCIN,TROUGH 11.1 ug/mL (15-20)
[2016-11-15] MEDS: DILAUDID INJ IVP PRN (22:00)
[2016-11-16 06:06] LABS: BASOPHILS % (AUTO) 0.4 % (0.2-1.0); EOSINOPHILS # (AUTO) 0.2 x10^3/uL (0.0-0.2); EOSINOPHILS % (AUTO) 2.4 % (0.9-2.9); HEMATOCRIT 38.3 % (42.0-54.0); LYMPHOCYTES # (AUTO) 1.4 X10^3/uL (1.3-2.9); LYMPHOCYTES % (AUTO) 16.8 % (21.0-51.0); MEAN CORPUSCULAR HEMOGLOBIN 28.2 pg (27.0-34.0); MEAN CORPUSCULAR HGB CONC 33.8 g/dL (33.0-35.0); MEAN CORPUSCULAR VOLUME 83.5 fL (80.0-100.0); MEAN PLATELET VOLUME 8.5 fL (7.4-11.0); MONOCYTES # (AUTO) 1.6 x10^3/uL (0.3-0.8); MONOCYTES % (AUTO) 18.9 % (0.0-13.0); NEUTROPHILS # (AUTO) 5.2 x10^3/uL (2.2-4.8); NEUTROPHILS % (AUTO) 61.5 % (42.0-75.0); PLATELET COUNT 235 X10^3/uL (150.0-450.0); RED BLOOD COUNT 4.59 X10^6/uL (4.7-6.0); RED CELL DISTRIBUTION WIDTH 17.3 % (11.6-16.5); WHITE BLOOD COUNT 8.5 X10^3/uL (3.6-10.0)
[2016-11-16] MEDS: PERCOCET TAB 5/325 MG PO PRN ×3 (06:36→19:49)
[2016-11-16 06:52] LABS: ALANINE AMINOTRANSFERASE 16 Units/L (12-78); ALBUMIN 2.6 g/dL (3.4-5.0); ALKALINE PHOSPHATASE 48 Units/L (46-116); ASPARTATE AMINO TRANSFERASE 12 Units/L (15-37); BLOOD UREA NITROGEN 15 mg/dL (7-18); CALCIUM 8.4 mg/dL (8.5-10.1); CARBON DIOXIDE 29.3 mmol/L (21-32); CHLORIDE 109 mmol/L (98-107); COR CA(FOR HYPOALB) 9.5 mg/dL (8.5-10.1); SODIUM 144 mmol/L (136-145); TOTAL PROTEIN 5.5 g/dL (6.4-8.2); eGFR BLACK RACES > 60 (>60); eGFR NON BLACK RACES > 60 (>60)
[2016-11-16] MEDS ORDERED: TOPROL XL PO ONE (08:27)
[2016-11-16] MEDS: VANCOMYCIN 1 GM PREMIX (ADDVANTAGE) 250 ML IV SCH ×2 (10:20→21:25)
[2016-11-16] MEDS: SYNTHROID 125 mcg TAB PO SCH (10:21)
[2016-11-16] MEDS: TOPROL XL PO SCH (10:22)
[2016-11-16] MEDS: DILAUDID INJ IVP PRN ×2 (14:24→21:28)
[2016-11-16] MEDS: NS 1000 ML 1,000 ML IV SCH (14:24)
--- NOTE | 2016-11-16 14:59 | PCM.PROG ---
Progress Note - Progress Note for Day of Date: 11/16/16 - Subjective Subjective: Erythema after vancomycin infusion. - Past Medical Family Social History Allergies: Allergies adhesive tape Adverse Reaction (Verified 11/14/16 12:33) allopurinol Adverse Reaction (Verified 11/14/16 12:31) diltiazem Adverse Reaction (Verified 11/14/16 12:32) - Vital Signs and I&O's Vital Signs: Temperature 98 F Pulse Rate [Right Brachial] 54 Pulse Rate [Left Brachial] 60 Respiratory Rate 18 Blood Pressure [Left Arm] 149/68 Blood Pressure [Right Arm] 159/71 Blood Pressure 170/87 O2 Sat by Pulse Oximetry 96 Intake and Output: Intake & Output 11/14/16 11/15/16 11/16/16 11/17/16 11:59 11:59 11:59 11:59 Intake Total 910 2640 Output Total 500 Balance 410 2640 - Physical Exam Oriented: Normal Eyes: Normal Ear: Normal Nose: Normal Throat: Normal Respiratory: Normal Cardiovascular: Normal, Irregular : Normal Auscultation: Bowel Sounds: Normal Tenderness: Normal Skin: Rash (Diffuse), Red, Tender ((R) axillae), Hot, Other (Packing changed (R ) axillae - minimal purulence with dressing change.) Musculoskeletal: Normal, Hand Psychiatric: Normal Mood Description: Calm Affect: Normal Speech Pattern: Clear, Appropriate - Laboratory and Diagnostics Result Diagrams: 11/16/16 05:15 11/16/16 05:15 Labs: 11/14/16 12:59 Axilla - Right Gram Stain - Final 11/14/16 12:59 Axilla - Right Wound Culture - Final Staphylococcus Aureus 11/14/16 12:57 Blood Blood Culture - Preliminary 11/14/16 12:30 Blood Blood Culture - Preliminary Laboratory WBC 8.5 X10^3/uL (3.6-10.0) 11/16/16 05:15 RBC 4.59 X10^6/uL (4.7-6.0) L 11/16/16 05:15 Hgb 13.0 g/dL (13.5-18.0) L 11/16/16 05:15 Hct 38.3 % (42.0-54.0) L 11/16/16 05:15 MCV 83.5 fL (80.0-100.0) 11/16/16 05:15 MCH 28.2 pg (27.0-34.0) 11/16/16 05:15 MCHC 33.8 g/dL (33.0-35.0) 11/16/16 05:15 RDW 17.3 % (11.6-16.5) H 11/16/16 05:15 Plt Count 235 X10^3/uL (150.0-450.0) 11/16/16 05:15 MPV 8.5 fL (7.4-11.0) 11/16/16 05:15 Neut % 61.5 % (42.0-75.0) 11/16/16 05:15 Lymph % 16.8 % (21.0-51.0) L 11/16/16 05:15 [place] % 18.9 % (0.0-13.0) H 11/16/16 05:15 Eos % 2.4 % (0.9-2.9) 11/16/16 05:15 Baso % 0.4 % (0.2-1.0) 11/16/16 05:15 Neut # 5.2 x10^3/uL (2.2-4.8) H 11/16/16 05:15 Lymph # 1.4 X10^3/uL (1.3-2.9) 11/16/16 05:15 [place] # 1.6 x10^3/uL (0.3-0.8) H 11/16/16 05:15 Eos # 0.2 x10^3/uL (0.0-0.2) 11/16/16 05:15 Baso # 0.0 X10^3/uL (0.0-0.1) 11/16/16 05:15 Absolute Nucleated RBC 0.0 /100WBC 11/16/16 05:15 ESR 13 MM/HOUR (0-15) 11/14/16 12:30 INR Target Range - 11/14/16 12:30 INR 1.09 (0.8-1.3) 11/14/16 12:30 Sodium 144 mmol/L (136-145) 11/16/16 05:15 Corrected Sodium TNP 11/16/16 05:15 Potassium 3.3 mmol/L (3.5-5.1) L 11/16/16 05:15 Chloride 109 mmol/L (98-107) H 11/16/16 05:15 Carbon Dioxide 29.3 mmol/L (21-32) 11/16/16 05:15 BUN 15 mg/dL (7-18) 11/16/16 05:15 Creatinine 0.90 mg/dL (0.70-1.30) 11/16/16 05:15 Est GFR (MDRD) Af Amer > 60 (>60) 11/16/16 05:15 Est GFR (MDRD) Non-Af > 60 (>60) 11/16/16 05:15 Glucose 104 mg/dL (65-99) H 11/16/16 05:15 Calcium 8.4 mg/dL (8.5-10.1) L 11/16/16 05:15 Corrected Calcium 9.5 mg/dL (8.5-10.1) 11/16/16 05:15 Total Bilirubin 0.30 mg/dL (0.2-1.0) 11/16/16 05:15 AST 12 Units/L (15-37) L 11/16/16 05:15 ALT 16 Units/L (12-78) 11/16/16 05:15 Alkaline Phosphatase 48 Units/L (46-116) 11/16/16 05:15 C-Reactive Protein 9.30 mg/L (0-3.0) H 11/14/16 12:30 Total Protein 5.5 g/dL (6.4-8.2) L 11/16/16 05:15 Albumin 2.6 g/dL (3.4-5.0) L 11/16/16 05:15 Globulin 2.9 g/dL (2.5-4.5) 11/16/16 05:15 Albumin/Globulin Ratio 0.9 Ratio (1.1-2.1) L 11/16/16 05:15 Vancomycin Trough 11.1 ug/mL (15-20) L 11/15/16 21:00 - Plan (1) Axillary abscess Status: Acute Narrative Support Text: Stable post-op. Daily dressing changes. Abx. per primary team. Plan: Routine post-op care. Daily dressing changes. OK to d/c from surgery standpoint.
[2016-11-16] MEDS: PROSCAR PO SCH (21:24)
[2016-11-16] MEDS: HYTRIN PO SCH (21:24)
[2016-11-16] MEDS: COLACE CAP 100 MG PO SCH (21:24)
[2016-11-17 05:19] LABS: ALANINE AMINOTRANSFERASE 17 Units/L (12-78); ALKALINE PHOSPHATASE 60 Units/L (46-116); ASPARTATE AMINO TRANSFERASE 17 Units/L (15-37); BASOPHILS % (AUTO) 0.3 % (0.2-1.0); BLOOD UREA NITROGEN 14 mg/dL (7-18); CALCIUM 8.6 mg/dL (8.5-10.1); CARBON DIOXIDE 28.7 mmol/L (21-32); CHLORIDE 110 mmol/L (98-107); COR CA(FOR HYPOALB) 9.4 mg/dL (8.5-10.1); CREATININE 0.98 mg/dL (0.70-1.30); EOSINOPHILS # (AUTO) 0.3 x10^3/uL (0.0-0.2); EOSINOPHILS % (AUTO) 3.4 % (0.9-2.9); HEMATOCRIT 42.6 % (42.0-54.0); HEMOGLOBIN 14.3 g/dL (13.5-18.0); LYMPHOCYTES # (AUTO) 1.7 X10^3/uL (1.3-2.9); LYMPHOCYTES % (AUTO) 19.2 % (21.0-51.0); MEAN CORPUSCULAR HEMOGLOBIN 28.3 pg (27.0-34.0); MEAN CORPUSCULAR HGB CONC 33.5 g/dL (33.0-35.0); MEAN CORPUSCULAR VOLUME 84.4 fL (80.0-100.0); MEAN PLATELET VOLUME 8.7 fL (7.4-11.0); MONOCYTES # (AUTO) 1.6 x10^3/uL (0.3-0.8); MONOCYTES % (AUTO) 18.2 % (0.0-13.0); NEUTROPHILS # (AUTO) 5.2 x10^3/uL (2.2-4.8); NEUTROPHILS % (AUTO) 58.9 % (42.0-75.0); PLATELET COUNT 250 X10^3/uL (150.0-450.0); RED BLOOD COUNT 5.04 X10^6/uL (4.7-6.0); RED CELL DISTRIBUTION WIDTH 17.2 % (11.6-16.5); SODIUM 144 mmol/L (136-145); TOTAL PROTEIN 6.2 g/dL (6.4-8.2); WHITE BLOOD COUNT 8.9 X10^3/uL (3.6-10.0); eGFR BLACK RACES > 60 (>60); eGFR NON BLACK RACES > 60 (>60)
[2016-11-17] MEDS: NS 1000 ML 1,000 ML IV SCH ×2 (05:32→20:56)
[2016-11-17] MEDS: PERCOCET TAB 5/325 MG PO PRN ×3 (05:35→19:27)
[2016-11-17] MEDS ORDERED: TOPROL XL PO ONE (08:17)
[2016-11-17] MEDS: SYNTHROID 125 mcg TAB PO SCH (09:22)
[2016-11-17] MEDS: VANCOMYCIN 1 GM PREMIX (ADDVANTAGE) 250 ML IV SCH (09:22)
[2016-11-17] MEDS: TOPROL XL PO SCH (09:22)
[2016-11-17] MEDS: DILAUDID INJ IVP PRN ×2 (15:06→23:47)
[2016-11-17] MEDS: BENADRYL CAP/TAB 25 MG PO PRN ×2 (19:26→23:47)
[2016-11-17] MEDS: TEFLARO 600 MG in NS 50 ML IV + SPIKE MINIBAG* 50 ML IV SCH (20:57)
[2016-11-17] MEDS: HYTRIN PO SCH (20:58)
[2016-11-17] MEDS: COLACE CAP 100 MG PO SCH (20:58)
[2016-11-17] MEDS: PROSCAR PO SCH (20:59)
[2016-11-18] MEDS: BENADRYL CAP/TAB 25 MG PO PRN ×3 (03:58→15:34)
[2016-11-18 05:20] LABS: BASOPHILS % (AUTO) 0.4 % (0.2-1.0); EOSINOPHILS # (AUTO) 0.4 x10^3/uL (0.0-0.2); EOSINOPHILS % (AUTO) 4.2 % (0.9-2.9); HEMATOCRIT 39.1 % (42.0-54.0); LYMPHOCYTES # (AUTO) 1.2 X10^3/uL (1.3-2.9); LYMPHOCYTES % (AUTO) 14.5 % (21.0-51.0); MEAN CORPUSCULAR HEMOGLOBIN 28.3 pg (27.0-34.0); MEAN CORPUSCULAR HGB CONC 33.4 g/dL (33.0-35.0); MEAN CORPUSCULAR VOLUME 84.7 fL (80.0-100.0); MEAN PLATELET VOLUME 8.8 fL (7.4-11.0); MONOCYTES # (AUTO) 1.3 x10^3/uL (0.3-0.8); MONOCYTES % (AUTO) 14.9 % (0.0-13.0); NEUTROPHILS # (AUTO) 5.7 x10^3/uL (2.2-4.8); PLATELET COUNT 232 X10^3/uL (150.0-450.0); RED BLOOD COUNT 4.61 X10^6/uL (4.7-6.0); RED CELL DISTRIBUTION WIDTH 17.2 % (11.6-16.5); WHITE BLOOD COUNT 8.6 X10^3/uL (3.6-10.0)
[2016-11-18 05:24] LABS: ALANINE AMINOTRANSFERASE 16 Units/L (12-78); ALBUMIN 2.8 g/dL (3.4-5.0); ALKALINE PHOSPHATASE 55 Units/L (46-116); ASPARTATE AMINO TRANSFERASE 15 Units/L (15-37); BLOOD UREA NITROGEN 12 mg/dL (7-18); CALCIUM 8.4 mg/dL (8.5-10.1); CARBON DIOXIDE 27.6 mmol/L (21-32); CHLORIDE 110 mmol/L (98-107); COR CA(FOR HYPOALB) 9.4 mg/dL (8.5-10.1); CREATININE 0.82 mg/dL (0.70-1.30); SODIUM 142 mmol/L (136-145); TOTAL PROTEIN 5.8 g/dL (6.4-8.2); eGFR BLACK RACES > 60 (>60); eGFR NON BLACK RACES > 60 (>60)
[2016-11-18] MEDS ORDERED: TOPROL XL PO ONE (09:06)
[2016-11-18] MEDS: NS 1000 ML 1,000 ML IV SCH (09:16)
[2016-11-18] MEDS: TEFLARO 600 MG in NS 50 ML IV + SPIKE MINIBAG* 50 ML IV SCH ×2 (09:16→21:18)
[2016-11-18] MEDS: TOPROL XL PO SCH (09:16)
[2016-11-18] MEDS: SYNTHROID 125 mcg TAB PO SCH (09:16)
[2016-11-18] MEDS: PERCOCET TAB 5/325 MG PO PRN (12:17)
[2016-11-18] MEDS: DILAUDID INJ IVP PRN (15:29)
[2016-11-18] MEDS: HYTRIN PO SCH (21:17)
[2016-11-18] MEDS: PROSCAR PO SCH (21:17)
[2016-11-18] MEDS: COLACE CAP 100 MG PO SCH (21:17)
[2016-11-19 05:19] LABS: BASOPHILS % (AUTO) 0.3 % (0.2-1.0); EOSINOPHILS # (AUTO) 0.5 x10^3/uL (0.0-0.2); EOSINOPHILS % (AUTO) 5.7 % (0.9-2.9); HEMATOCRIT 36.4 % (42.0-54.0); HEMOGLOBIN 12.1 g/dL (13.5-18.0); LYMPHOCYTES # (AUTO) 1.5 X10^3/uL (1.3-2.9); LYMPHOCYTES % (AUTO) 17.8 % (21.0-51.0); MEAN CORPUSCULAR HEMOGLOBIN 28.4 pg (27.0-34.0); MEAN CORPUSCULAR HGB CONC 33.4 g/dL (33.0-35.0); MEAN PLATELET VOLUME 8.5 fL (7.4-11.0); MONOCYTES # (AUTO) 1.6 x10^3/uL (0.3-0.8); MONOCYTES % (AUTO) 18.7 % (0.0-13.0); NEUTROPHILS # (AUTO) 4.9 x10^3/uL (2.2-4.8); NEUTROPHILS % (AUTO) 57.5 % (42.0-75.0); PLATELET COUNT 219 X10^3/uL (150.0-450.0); RED BLOOD COUNT 4.28 X10^6/uL (4.7-6.0); RED CELL DISTRIBUTION WIDTH 17.4 % (11.6-16.5); WHITE BLOOD COUNT 8.6 X10^3/uL (3.6-10.0)
[2016-11-19 05:24] LABS: ALANINE AMINOTRANSFERASE 14 Units/L (12-78); ALBUMIN 2.4 g/dL (3.4-5.0); ALKALINE PHOSPHATASE 47 Units/L (46-116); ASPARTATE AMINO TRANSFERASE 11 Units/L (15-37); BLOOD UREA NITROGEN 12 mg/dL (7-18); CALCIUM 8.5 mg/dL (8.5-10.1); CARBON DIOXIDE 27.7 mmol/L (21-32); CHLORIDE 112 mmol/L (98-107); COR CA(FOR HYPOALB) 9.8 mg/dL (8.5-10.1); CREATININE 0.87 mg/dL (0.70-1.30); SODIUM 143 mmol/L (136-145); TOTAL PROTEIN 5.2 g/dL (6.4-8.2); eGFR BLACK RACES > 60 (>60); eGFR NON BLACK RACES > 60 (>60)
[2016-11-19] MEDS ORDERED: TOPROL XL PO ONE (08:43)
[2016-11-19] MEDS: SYNTHROID 125 mcg TAB PO SCH (08:53)
[2016-11-19] MEDS: TEFLARO 600 MG in NS 50 ML IV + SPIKE MINIBAG* 50 ML IV SCH ×2 (08:53→20:53)
[2016-11-19] MEDS: TOPROL XL PO SCH (08:53)
[2016-11-19] MEDS: NS 1000 ML 1,000 ML IV SCH ×2 (08:54→20:38)
[2016-11-19] MEDS: BENADRYL CAP/TAB 25 MG PO PRN ×3 (08:57→21:32)
[2016-11-19] MEDS: PERCOCET TAB 5/325 MG PO PRN ×2 (12:03→19:46)
[2016-11-19] MEDS: DILAUDID INJ IVP PRN ×2 (16:21→22:46)
[2016-11-19] MEDS: EUCERIN TOP SCH ×2 (17:21→20:56)
[2016-11-19] MEDS: HYTRIN PO SCH (20:52)
[2016-11-19] MEDS: PROSCAR PO SCH (20:52)
[2016-11-19] MEDS: COLACE CAP 100 MG PO SCH (20:52)
[2016-11-20] MEDS: PERCOCET TAB 5/325 MG PO PRN ×3 (05:42→19:22)
[2016-11-20] MEDS: BENADRYL CAP/TAB 25 MG PO PRN ×2 (05:42→09:40)
[2016-11-20 06:16] LABS: BASOPHILS % (AUTO) 0.4 % (0.2-1.0); EOSINOPHILS # (AUTO) 0.5 x10^3/uL (0.0-0.2); EOSINOPHILS % (AUTO) 6.9 % (0.9-2.9); HEMATOCRIT 38.6 % (42.0-54.0); LYMPHOCYTES # (AUTO) 1.7 X10^3/uL (1.3-2.9); LYMPHOCYTES % (AUTO) 21.7 % (21.0-51.0); MEAN CORPUSCULAR HEMOGLOBIN 28.3 pg (27.0-34.0); MEAN CORPUSCULAR HGB CONC 33.8 g/dL (33.0-35.0); MEAN CORPUSCULAR VOLUME 83.8 fL (80.0-100.0); MONOCYTES # (AUTO) 1.7 x10^3/uL (0.3-0.8); MONOCYTES % (AUTO) 21.8 % (0.0-13.0); NEUTROPHILS # (AUTO) 3.8 x10^3/uL (2.2-4.8); NEUTROPHILS % (AUTO) 49.2 % (42.0-75.0); PLATELET COUNT 262 X10^3/uL (150.0-450.0); RED CELL DISTRIBUTION WIDTH 17.5 % (11.6-16.5); WHITE BLOOD COUNT 7.8 X10^3/uL (3.6-10.0)
[2016-11-20 06:34] LABS: ALANINE AMINOTRANSFERASE 17 Units/L (12-78); ALBUMIN 2.6 g/dL (3.4-5.0); ALKALINE PHOSPHATASE 54 Units/L (46-116); ASPARTATE AMINO TRANSFERASE 16 Units/L (15-37); BLOOD UREA NITROGEN 11 mg/dL (7-18); CALCIUM 8.4 mg/dL (8.5-10.1); CARBON DIOXIDE 27.4 mmol/L (21-32); CHLORIDE 111 mmol/L (98-107); COR CA(FOR HYPOALB) 9.5 mg/dL (8.5-10.1); CREATININE 0.94 mg/dL (0.70-1.30); SODIUM 144 mmol/L (136-145); TOTAL PROTEIN 5.6 g/dL (6.4-8.2); eGFR BLACK RACES > 60 (>60); eGFR NON BLACK RACES > 60 (>60)
[2016-11-20 07:11] LABS: PLATELET MORPHOLOGY COMMENT NORMAL (NORMAL)
[2016-11-20] MEDS ORDERED: TOPROL XL PO ONE (08:55)
[2016-11-20] MEDS: TOPROL XL PO SCH (09:36)
[2016-11-20] MEDS: SYNTHROID 125 mcg TAB PO SCH (09:36)
[2016-11-20] MEDS: TEFLARO 600 MG in NS 50 ML IV + SPIKE MINIBAG* 50 ML IV SCH ×2 (09:37→21:02)
[2016-11-20] MEDS: EUCERIN TOP SCH ×2 (10:26→21:03)
[2016-11-20] MEDS ORDERED: LASIX IVP ONE (15:50)
[2016-11-20] MEDS ORDERED: LASIX IVP NR (16:07)
[2016-11-20] MEDS: DILAUDID INJ IVP PRN ×2 (16:16→21:01)
[2016-11-20] MEDS: HYTRIN PO SCH (21:02)
[2016-11-20] MEDS: COLACE CAP 100 MG PO SCH (21:02)
[2016-11-20] MEDS: PROSCAR PO SCH (21:02)
[2016-11-20] MEDS: NS 1000 ML 1,000 ML IV SCH (23:00)
[2016-11-21 05:38] LABS: BASOPHILS % (AUTO) 0.6 % (0.2-1.0); EOSINOPHILS # (AUTO) 0.6 x10^3/uL (0.0-0.2); EOSINOPHILS % (AUTO) 8.3 % (0.9-2.9); HEMATOCRIT 39.4 % (42.0-54.0); HEMOGLOBIN 13.3 g/dL (13.5-18.0); LYMPHOCYTES # (AUTO) 1.5 X10^3/uL (1.3-2.9); LYMPHOCYTES % (AUTO) 20.4 % (21.0-51.0); MEAN CORPUSCULAR HEMOGLOBIN 28.3 pg (27.0-34.0); MEAN CORPUSCULAR HGB CONC 33.8 g/dL (33.0-35.0); MEAN CORPUSCULAR VOLUME 83.8 fL (80.0-100.0); MEAN PLATELET VOLUME 8.9 fL (7.4-11.0); MONOCYTES # (AUTO) 1.7 x10^3/uL (0.3-0.8); MONOCYTES % (AUTO) 22.7 % (0.0-13.0); NEUTROPHILS # (AUTO) 3.6 x10^3/uL (2.2-4.8); PLATELET COUNT 285 X10^3/uL (150.0-450.0); RED CELL DISTRIBUTION WIDTH 17.4 % (11.6-16.5); WHITE BLOOD COUNT 7.5 X10^3/uL (3.6-10.0)
[2016-11-21 06:23] LABS: ALANINE AMINOTRANSFERASE 19 Units/L (12-78); ALBUMIN 2.7 g/dL (3.4-5.0); ALKALINE PHOSPHATASE 59 Units/L (46-116); ASPARTATE AMINO TRANSFERASE 17 Units/L (15-37); BLOOD UREA NITROGEN 11 mg/dL (7-18); CALCIUM 8.5 mg/dL (8.5-10.1); CARBON DIOXIDE 29.5 mmol/L (21-32); CHLORIDE 110 mmol/L (98-107); COR CA(FOR HYPOALB) 9.5 mg/dL (8.5-10.1); CREATININE 1.17 mg/dL (0.70-1.30); SODIUM 144 mmol/L (136-145); TOTAL PROTEIN 5.7 g/dL (6.4-8.2); eGFR BLACK RACES > 60 (>60); eGFR NON BLACK RACES > 60 (>60)
[2016-11-21 06:43] LABS: BAND NEUTROPHILS % 4 % (0-10)
[2016-11-21 06:44] LABS: PLATELET MORPHOLOGY COMMENT NORMAL (NORMAL)
[2016-11-21] MEDS ORDERED: TOPROL XL PO ONE (08:58)
[2016-11-21] MEDS: SYNTHROID 125 mcg TAB PO SCH (09:52)
[2016-11-21] MEDS: TOPROL XL PO SCH (09:52)
[2016-11-21] MEDS: PERCOCET TAB 5/325 MG PO PRN (09:52)
[2016-11-21] MEDS: TEFLARO 600 MG in NS 50 ML IV + SPIKE MINIBAG* 50 ML IV SCH (09:53)
[2016-11-21] MEDS: EUCERIN TOP SCH (10:09)
--- NOTE | 2016-11-21 10:29 | RAD ---
HISTORY: Axillary abscess Study: Single view of the chest. Comparison: 11/14/2016 Findings: Cardiomegaly and pulmonary vascular congestion which is unchanged. No focal consolidations, pleural e ffusions or pneumothorax. Osseous structures demonstrate no acute abnormality. IMPRESSION: 1. Cardiomegaly and pulmonary vascular congestion. 2. It should be noted that chest x-ray cannot evaluate the soft tissues of the axilla. Reported By:
[2016-11-21] MEDS: DILAUDID INJ IVP PRN (12:37)
[2016-11-21 12:59] VITALS: BP 101/55
== END 2016-11-21 16:25 | disposition home health service (06) | DRG 603 ==
LOC: UNDOADMIN 10:57 → MED/SURG 10:57
PROVIDERS: ADMIT Internal Medicine; ATTEND Internal Medicine
PROC: 0X940ZX Drainage of Right Axilla, Open Approach, Diagnostic (ICD-10-PCS; principal; 2016-11-15 09:00)
DX: L02.411 Cutaneous abscess of right axilla (principal); L03.113 Cellulitis of right upper limb; L53.8 Other specified erythematous conditions; I25.10 Atherosclerotic heart disease of native coronary artery without angina pectoris; K21.9 Gastro-esophageal reflux disease without esophagitis; F32.89 Other specified depressive episodes; J44.9 Chronic obstructive pulmonary disease, unspecified; M13.89 Other specified arthritis, multiple sites; I10 Essential (primary) hypertension; Z79.01 Long term (current) use of anticoagulants; B95.62 Methicillin resistant Staphylococcus aureus infection as the cause of diseases classified elsewhere
CPT/HCPCS: 36415; 71010; 80053; 80202; 82565; 85025; 85610; 85652; 86140; 87040; 87070; 87075; 87077; 87186; 87205; 93005; 93010; 99100; A4222; S0020; S0138; J0712; J1940; J2001; J2270; J3010; J3370; J3490; J7120

== ENCOUNTER 2016-11-26 14:14 | Inpatient (IN) | payer OTHER ==
[2016-11-26 16:07] LABS: BASOPHILS # (AUTO) 0.1 X10^3/uL (0.0-0.1); BASOPHILS % (AUTO) 0.6 % (0.2-1.0); EOSINOPHILS # (AUTO) 0.8 x10^3/uL (0.0-0.2); HEMATOCRIT 38.4 % (42.0-54.0); LYMPHOCYTES # (AUTO) 2.5 X10^3/uL (1.3-2.9); LYMPHOCYTES % (AUTO) 25.3 % (21.0-51.0); MEAN CORPUSCULAR HEMOGLOBIN 28.3 pg (27.0-34.0); MEAN CORPUSCULAR HGB CONC 33.9 g/dL (33.0-35.0); MEAN CORPUSCULAR VOLUME 83.4 fL (80.0-100.0); MEAN PLATELET VOLUME 8.2 fL (7.4-11.0); MONOCYTES % (AUTO) 20.1 % (0.0-13.0); NEUTROPHILS # (AUTO) 4.6 x10^3/uL (2.2-4.8); PLATELET COUNT 326 X10^3/uL (150.0-450.0); RED CELL DISTRIBUTION WIDTH 17.7 % (11.6-16.5); WHITE BLOOD COUNT 9.9 X10^3/uL (3.6-10.0)
[2016-11-26 16:22] LABS: B-TYPE NATRIURETIC PEPTIDE 52.1 pg/mL (0-79)
[2016-11-26 16:31] LABS: LACTIC ACID 1.8 mmol/L (0.4-2.0)
[2016-11-26 16:36] LABS: ALANINE AMINOTRANSFERASE 16 Units/L (12-78); ALBUMIN 2.5 g/dL (3.4-5.0); ALKALINE PHOSPHATASE 82 Units/L (46-116); ASPARTATE AMINO TRANSFERASE 15 Units/L (15-37); BLOOD UREA NITROGEN 12 mg/dL (7-18); CARBON DIOXIDE 26.6 mmol/L (21-32); CHLORIDE 106 mmol/L (98-107); COR CA(FOR HYPOALB) 9.2 mg/dL (8.5-10.1); CREATININE 0.93 mg/dL (0.70-1.30); FREE T4 (FREE THYROXINE) 1.63 ng/dL (0.76-1.46); MAGNESIUM 1.5 mg/dL (1.7-2.9); SODIUM 143 mmol/L (136-145); TOTAL PROTEIN 5.7 g/dL (6.4-8.2); TSH (3RD GENERATION) 4.798 uIU/mL (0.358-3.74); eGFR BLACK RACES > 60 (>60); eGFR NON BLACK RACES > 60 (>60)
[2016-11-26 16:39] LABS: BAND NEUTROPHILS % 4 % (0-10)
[2016-11-26] MEDS ORDERED: NS 250 ML IV 250 ML IV ONE (16:39)
[2016-11-26 16:40] LABS: PLATELET MORPHOLOGY COMMENT NORMAL (NORMAL)
[2016-11-26 16:41] LABS: D DIMER 1820 ng/mL (0-400)
[2016-11-26] MEDS ORDERED: NS 100 ML IV + SPIKE MINIBAG* 100 ML IV ONE ×2 (16:44→20:12)
[2016-11-26] MEDS: TEFLARO IV SCH ×2 (17:01→20:29)
[2016-11-26 17:29] LABS: ERYTHROCYTE SEDIMENTATION RATE 15 MM/HOUR (0-15)
[2016-11-26] MEDS ORDERED: K-DUR TAB 20 MEQ PO SCH ×2 (18:00→20:00)
[2016-11-26] MEDS ORDERED: MAGNESIUM SULFATE 1 GM/100 mL PREMIX 1 GM/100 ML BAG IV SCH ×2 (18:00→23:00)
--- NOTE | 2016-11-26 18:40 | RAD ---
HISTORY: Shortness of breath Study: Chest AP portable Comparison: November 21, 2016 Findings: The heart is within normal limits in size. The kenroy are normal. The lungs are well inflated and free of acute alveolar infiltrates. No pleural effusions are identified. The bony thorax is unremarkable. IMPRESSION: No significant abnormality identified Reported By:
[2016-11-26] MEDS: SOLU-Medrol 125 MG VIAL IVP SCH (20:29)
[2016-11-26] MEDS: LASIX IVP SCH (20:30)
[2016-11-26] MEDS ORDERED: KENALOG CREAM TOP PRN (20:30)
[2016-11-26] MEDS ORDERED: ELIQUIS PO SCH (21:00)
[2016-11-26] MEDS: FLAGYL TAB 500 MG PO SCH (21:04)
[2016-11-26] MEDS: HYTRIN PO SCH (21:10)
[2016-11-26] MEDS: PROSCAR PO SCH (21:10)
[2016-11-26] MEDS: PROTONIX INJ 40 MG VIAL IVP SCH (21:10)
[2016-11-26 22:02] LABS: BILIRUBIN,URINE 1+ (NEGATIVE); BLOOD/HEMOGLOBIN,URINE 1+ (NEGATIVE); GLUCOSE, URINE NEGATIVE (NEGATIVE); KETONES,URINE 4+ (NEGATIVE); LEUKOCYTE ESTERASE ,URINE NEGATIVE (NEGATIVE); NITRITES,URINE NEGATIVE (NEGATIVE); PROTEIN,URINE 1+ (NEGATIVE); UROBILINOGEN,URINE 3+ (NORMAL)
--- NOTE | 2016-11-26 22:09 | VAS ---
HISTORY: Lower extremity edema Study: Bilateral lower extremity venous Doppler ultrasound Comparison: None TECHNIQUE: Multiple burger scale and color flow Doppler images of the deep venous system were obtained of the right and left lower extremity. FINDINGS: The deep venous system of the right and left lower extremities were evaluated from the level of the c ommon femoral vein through the popliteal vein. Normal color flow and augmentation can be observed. In addition, normal compression is seen throughout the deep venous system. There is an anechoic collection in the left popliteal fossa measuring approximately 4.3 x 3.5 x 1.4 c m, without associated Doppler flow. IMPRESSION: 1. Negative for DVT. 2. 4.3 x 3.5 cm left-sided popliteal cyst. Reported By:
[2016-11-26 22:28] LABS: APPEARANCE,URINE SLIGHTLY HAZY (CLEAR); BACTERIA,URINE TRACE /HPF (NEGATIVE); COLOR,URINE DARK YELLOW (YELLOW); MUCUS,URINE FEW /HPF (NEGATIVE); RBC,URINE 0-3 /HPF (NEGATIVE); SQUAMOUS EPITHELIAL CELL,UR RARE /HPF (NEGATIVE)
[2016-11-27] MEDS: PROVENTIL NEB TX 0.083% 2.5MG/ 3ML IN SCH ×4 (01:29→17:13)
[2016-11-27] MEDS ORDERED: NS 250 ML IV 250 ML IV ONE ×2 (02:28→15:38)
[2016-11-27] MEDS: LASIX IVP SCH ×3 (03:53→21:08)
[2016-11-27] MEDS: SOLU-Medrol 125 MG VIAL IVP SCH (04:15)
[2016-11-27] MEDS: FLAGYL TAB 500 MG PO SCH ×3 (05:33→21:08)
[2016-11-27 06:06] LABS: BASOPHILS % (AUTO) 0.4 % (0.2-1.0); EOSINOPHILS % (AUTO) 0.5 % (0.9-2.9); HEMATOCRIT 39.1 % (42.0-54.0); HEMOGLOBIN 13.3 g/dL (13.5-18.0); LYMPHOCYTES # (AUTO) 1.2 X10^3/uL (1.3-2.9); LYMPHOCYTES % (AUTO) 16.6 % (21.0-51.0); MEAN CORPUSCULAR HEMOGLOBIN 28.3 pg (27.0-34.0); MEAN CORPUSCULAR HGB CONC 34.2 g/dL (33.0-35.0); MEAN CORPUSCULAR VOLUME 82.7 fL (80.0-100.0); MONOCYTES # (AUTO) 0.4 x10^3/uL (0.3-0.8); MONOCYTES % (AUTO) 5.7 % (0.0-13.0); NEUTROPHILS # (AUTO) 5.7 x10^3/uL (2.2-4.8); NEUTROPHILS % (AUTO) 76.8 % (42.0-75.0); PLATELET COUNT 305 X10^3/uL (150.0-450.0); RED BLOOD COUNT 4.72 X10^6/uL (4.7-6.0); RED CELL DISTRIBUTION WIDTH 17.6 % (11.6-16.5); WHITE BLOOD COUNT 7.5 X10^3/uL (3.6-10.0)
[2016-11-27 06:43] LABS: ALANINE AMINOTRANSFERASE 16 Units/L (12-78); ALBUMIN 2.5 g/dL (3.4-5.0); ALKALINE PHOSPHATASE 79 Units/L (46-116); ASPARTATE AMINO TRANSFERASE 13 Units/L (15-37); BLOOD UREA NITROGEN 12 mg/dL (7-18); CARBON DIOXIDE 22.9 mmol/L (21-32); CHLORIDE 105 mmol/L (98-107); COR CA(FOR HYPOALB) 9.2 mg/dL (8.5-10.1); COR NA(FOR HYPERGLY) 143 mmol/L (136-145); SODIUM 142 mmol/L (136-145); TOTAL PROTEIN 5.9 g/dL (6.4-8.2); eGFR BLACK RACES > 60 (>60); eGFR NON BLACK RACES > 60 (>60)
[2016-11-27] MEDS ORDERED: TOPROL XL PO ONE (08:27)
[2016-11-27] MEDS ORDERED: NS 100 ML IV + SPIKE MINIBAG* 100 ML IV ONE ×2 (08:29→20:56)
[2016-11-27 09:39] VITALS: BMI 30.7
[2016-11-27] MEDS: TOPROL XL PO SCH (09:43)
[2016-11-27] MEDS: SYNTHROID 125 mcg TAB PO SCH (09:43)
[2016-11-27] MEDS: PROTONIX INJ 40 MG VIAL IVP SCH (09:43)
[2016-11-27] MEDS: TEFLARO IV SCH ×2 (09:43→21:07)
[2016-11-27] MEDS ORDERED: K-LYTE EFFERVESCENT PO PRN (09:44)
[2016-11-27] MEDS ORDERED: POTASSIUM CHLORIDE LIQ 20 MEQ UDC PO PRN (09:44)
[2016-11-27] MEDS: K-DUR TAB 20 MEQ PO PRN (11:14)
[2016-11-27 14:08] LABS: CRYPTOSPORIDIUM PARVUM ANTIGEN NEGATIVE (NEGATIVE); GIARDIA LAMBLIA ANTIGEN NEGATIVE (NEGATIVE); STOOL FOR WBC POSITIVE (NEGATIVE)
[2016-11-27] MEDS ORDERED: CONSULT PHARMACY - ANTIBIOTIC XX SCH (15:00)
[2016-11-27] MEDS: ZITHROMAX (ADDVANTAGE) 500 MG/250 ML IV.SOLN. IV SCH (15:47)
[2016-11-27] MEDS: PROSCAR PO SCH (21:08)
[2016-11-27] MEDS: HYTRIN PO SCH (21:08)
[2016-11-28] MEDS: PROVENTIL NEB TX 0.083% 2.5MG/ 3ML IN SCH ×4 (00:35→17:19)
[2016-11-28 05:13] LABS: BASOPHILS % (AUTO) 0.2 % (0.2-1.0); HEMATOCRIT 37.1 % (42.0-54.0); HEMOGLOBIN 12.4 g/dL (13.5-18.0); LYMPHOCYTES # (AUTO) 2.1 X10^3/uL (1.3-2.9); LYMPHOCYTES % (AUTO) 14.1 % (21.0-51.0); MEAN CORPUSCULAR HEMOGLOBIN 27.8 pg (27.0-34.0); MEAN CORPUSCULAR HGB CONC 33.4 g/dL (33.0-35.0); MEAN CORPUSCULAR VOLUME 83.3 fL (80.0-100.0); MEAN PLATELET VOLUME 8.8 fL (7.4-11.0); MONOCYTES # (AUTO) 1.4 x10^3/uL (0.3-0.8); MONOCYTES % (AUTO) 9.3 % (0.0-13.0); NEUTROPHILS # (AUTO) 11.1 x10^3/uL (2.2-4.8); NEUTROPHILS % (AUTO) 76.4 % (42.0-75.0); PLATELET COUNT 335 X10^3/uL (150.0-450.0); RED BLOOD COUNT 4.45 X10^6/uL (4.7-6.0); RED CELL DISTRIBUTION WIDTH 17.8 % (11.6-16.5); WHITE BLOOD COUNT 14.6 X10^3/uL (3.6-10.0)
[2016-11-28 05:17] LABS: ALANINE AMINOTRANSFERASE 16 Units/L (12-78); ALBUMIN 2.5 g/dL (3.4-5.0); ALKALINE PHOSPHATASE 70 Units/L (46-116); ASPARTATE AMINO TRANSFERASE 12 Units/L (15-37); BLOOD UREA NITROGEN 14 mg/dL (7-18); CALCIUM 7.7 mg/dL (8.5-10.1); CARBON DIOXIDE 30.5 mmol/L (21-32); CHLORIDE 108 mmol/L (98-107); COR CA(FOR HYPOALB) 8.9 mg/dL (8.5-10.1); COR NA(FOR HYPERGLY) 145 mmol/L (136-145); CREATININE 0.92 mg/dL (0.70-1.30); SODIUM 144 mmol/L (136-145); TOTAL PROTEIN 5.7 g/dL (6.4-8.2); eGFR BLACK RACES > 60 (>60); eGFR NON BLACK RACES > 60 (>60)
[2016-11-28] MEDS: FLAGYL TAB 500 MG PO SCH ×3 (05:49→21:48)
[2016-11-28] MEDS: K-DUR TAB 20 MEQ PO PRN (05:49)
--- NOTE | 2016-11-28 09:04 | DR.H&P ---
H&P - History & Physical for Day of: H&P Date: 11/26/16 - Chief Complaint Chief Complaint: Legs swelling and diffuse rash - Allergies Allergies/Adverse Reactions: Allergies Allergy/AdvReac Type Severity Reaction Status Date / Time adhesive tape AdvReac Verified 11/14/16 12:33 allopurinol AdvReac Verified 11/14/16 12:31 diltiazem AdvReac Verified 11/14/16 12:32 - History of Present Illness History of Present Illness: The patient is a 76-year-old white male who is a primary care patient of my private practice. Patient was hospitalized at [facility] approximately 1 week ago due to a right axillary abscess which was surgically I& D at that time and the patient was hospitalized for several days for IV antibiotic therapy. The patient has an approximate 3 year history of chronic, diffuse maculopapular, exfoliative dermatitis which is progressively worsening over the last several months. Since the patient's recent hospitalization and discharge his development increasing bilateral lower extremity edema presumably secondary to the amount of IV fluids given during his recent hospitalization. During his previous hospitalization the patient was originally treated with IV vancomycin with questionable worsening of his dermatitis in his antibiotics were subsequently switched to Teflaro, and the patient was discharged home on clindamycin 150 mg by mouth 3 times a day for 7 days. The patient's diffuse maculopapular, exfoliative dermatitis has subsequently worsened since his hospital discharge. Patient has also developed worsening diffuse erythema suggestive of cellulitis superimposed on his chronic dermatitis. Patient subsequently admitted for further workup. - Past Medical History Past Medical History: Arthritis, COPD, Coronary Artery Disease, Depression, GERD , Gout, Hypertension, Hypothyroidism Additional Medical History: 1. ATOPIC DERMATITIS; this dx is given per pt - this has been a chronic problem that started in approximately 12/27 which was several months before being diagnosed with aspergillosis. 2. A-fib; s/p multiple ablation procedure by Dr. Elizondo at [facility]. 3. H/O Pulmonary aspergillosis; treated on two separate occasions since 2013 - Past Surgical History Surgical History: Cholecystectomy, Ortho Surgery, Tonsillectomy, Other Additional Surgical History: 1. Multiple afib ablation procedures performed by Dr. Elizondo at [facility] in [place], [place]. 2. S/P I&D of right axillary abscess; performed at [facility] 11/30 - Family History Family Medical History: ID, Hypertension - Social History Does patient currently use any type of tobacco product: No Have you used tobacco products in the last 12 months: No Type of Tobacco Use: Cigarettes How many years tobacco product used: 60 Does any household member use tobacco: No Alcohol Use: None Drug Use: Prescription Drugs - Medications Home Medications: Albuterol Neb 2.5MG/ 3Ml [ALBUTEROL NEB 2.5MG/ 3ML *] 1 inh PO DAILY PRN [History Confirmed 11/26/16] - Review of Systems Constitutional: See HPI Eyes: No Symptoms Reported ENT: No Symptoms Reported Respiratory: No Symptoms Reported Cardiovascular: No Symptoms Reported Gastrointestinal: No Symptoms Reported Genitourinary: No Symptoms Reported Musculoskeletal: See HPI Skin: See HPI Neurological: No Symptoms Reported - Physical Exam Vital Signs: Temperature 97.4 F Pulse Rate [Left Brachial] 81 Pulse Rate [Right Brachial] 67 Pulse Rate 87 Respiratory Rate 18 Blood Pressure [Left Arm] 103/53 Blood Pressure [Right Arm] 117/61 Blood Pressure 101/55 O2 Sat by Pulse Oximetry 96 Oriented: Normal Eyes: Normal Ear: Normal Nose: Normal Throat: Normal Respiratory: Clear Throughout Cardiovascular: Normal : Normal Auscultation: Bowel Sounds: Normal Palpation: Normal Tenderness: Normal Skin: Maculopapular (Diffuse maculopapular dermatitis with extensive exfoliation skin changes noted involving the face, torso, upper and lower extremities) Musculoskeletal: Normal, Swelling (3+ edema involving the lower ext bilaterally) Psychiatric: Normal Mood Description: Calm Affect: Angry Speech Pattern: Clear - Assessment/Plan (1) Diffuse dermatitis Status: Acute Plan: 1. Admit for OPO. 2. CBC, CMP, UA, d-dimer, ESR, CRP. 3. TSH, Free T4. 4. Blood cultures X 2 separate sites. 5. Teflaro 600mg IV q 12 hours. 6. Lasix 40mg IV q 12 hours. 7. Solumedrol 80mg IV q 8 hours X 3 doses. (2) Bilateral lower extremity edema Status: Acute Plan: As above
[2016-11-28] MEDS ORDERED: TOPROL XL PO ONE ×2 (09:29→09:57)
[2016-11-28] MEDS: SYNTHROID 125 mcg TAB PO SCH (09:54)
[2016-11-28] MEDS: PROTONIX INJ 40 MG VIAL IVP SCH (09:55)
[2016-11-28] MEDS: TEFLARO IV SCH ×2 (09:55→21:49)
[2016-11-28] MEDS: ZITHROMAX (ADDVANTAGE) 500 MG/250 ML IV.SOLN. IV SCH (09:56)
[2016-11-28] MEDS: LASIX IVP SCH ×2 (09:56→21:49)
[2016-11-28] MEDS: TOPROL XL PO SCH (09:57)
[2016-11-28] MEDS ORDERED: NS 100 ML IV + SPIKE MINIBAG* 100 ML IV ONE (20:38)
[2016-11-28] MEDS ORDERED: NS 250 ML IV 250 ML IV ONE (20:40)
[2016-11-28] MEDS: HYTRIN PO SCH (21:48)
[2016-11-28] MEDS: PROSCAR PO SCH (21:48)
[2016-11-29] MEDS: PROVENTIL NEB TX 0.083% 2.5MG/ 3ML IN SCH ×2 (00:26→05:24)
[2016-11-29 04:01] VITALS: BP 121/62
[2016-11-29 05:35] LABS: ALANINE AMINOTRANSFERASE 15 Units/L (12-78); ALBUMIN 2.6 g/dL (3.4-5.0); ALKALINE PHOSPHATASE 68 Units/L (46-116); ASPARTATE AMINO TRANSFERASE 14 Units/L (15-37); BASOPHILS # (AUTO) 0.1 X10^3/uL (0.0-0.1); BASOPHILS % (AUTO) 0.6 % (0.2-1.0); BLOOD UREA NITROGEN 12 mg/dL (7-18); CARBON DIOXIDE 32.4 mmol/L (21-32); CHLORIDE 109 mmol/L (98-107); COR CA(FOR HYPOALB) 9.1 mg/dL (8.5-10.1); CREATININE 1.02 mg/dL (0.70-1.30); EOSINOPHILS # (AUTO) 0.5 x10^3/uL (0.0-0.2); EOSINOPHILS % (AUTO) 4.9 % (0.9-2.9); HEMATOCRIT 38.3 % (42.0-54.0); HEMOGLOBIN 13.1 g/dL (13.5-18.0); LYMPHOCYTES # (AUTO) 2.2 X10^3/uL (1.3-2.9); MEAN CORPUSCULAR HEMOGLOBIN 28.3 pg (27.0-34.0); MEAN CORPUSCULAR HGB CONC 34.1 g/dL (33.0-35.0); MEAN CORPUSCULAR VOLUME 83.2 fL (80.0-100.0); MEAN PLATELET VOLUME 8.8 fL (7.4-11.0); MONOCYTES # (AUTO) 1.5 x10^3/uL (0.3-0.8); MONOCYTES % (AUTO) 13.9 % (0.0-13.0); NEUTROPHILS # (AUTO) 6.5 x10^3/uL (2.2-4.8); NEUTROPHILS % (AUTO) 60.6 % (42.0-75.0); PLATELET COUNT 348 X10^3/uL (150.0-450.0); RED BLOOD COUNT 4.61 X10^6/uL (4.7-6.0); RED CELL DISTRIBUTION WIDTH 17.9 % (11.6-16.5); SODIUM 146 mmol/L (136-145); TOTAL PROTEIN 5.9 g/dL (6.4-8.2); WHITE BLOOD COUNT 10.8 X10^3/uL (3.6-10.0); eGFR BLACK RACES > 60 (>60); eGFR NON BLACK RACES > 60 (>60)
[2016-11-29] MEDS: FLAGYL TAB 500 MG PO SCH (05:56)
[2016-11-29] MEDS: K-DUR TAB 20 MEQ PO PRN (05:56)
[2016-11-29 10:39] LABS: ANTI-NUCLEAR ANTIBODY TEST None Detected (None Detected)
== END 2016-11-29 06:10 | disposition short-term general hospital (02) | DRG 607 ==
LOC: MED/SURG 14:14
PROVIDERS: ADMIT Internal Medicine; ATTEND Internal Medicine
DX: L20.89 Other atopic dermatitis (principal); R60.0 Localized edema; M79.89 Other specified soft tissue disorders; R79.82 Elevated C-reactive protein (CRP); E03.8 Other specified hypothyroidism; I10 Essential (primary) hypertension; K21.9 Gastro-esophageal reflux disease without esophagitis; F32.89 Other specified depressive episodes; I25.10 Atherosclerotic heart disease of native coronary artery without angina pectoris; M13.89 Other specified arthritis, multiple sites; J44.9 Chronic obstructive pulmonary disease, unspecified; R21 Rash and other nonspecific skin eruption
CPT/HCPCS: 36415; 71010; 80053; 81001; 82270; 83605; 83630; 83735; 83880; 84132; 84439; 84443; 85025; 85378; 85610; 85652; 86140; 86308; 87040; 87045; 87086; 87088; 87186; 87328; 87329; 87336; 87427; 87493; 87899; 93005; 93010; 93970; 94640; A4216; A4222; C9113; S0138; J0712; J1940; J2930; J7613

== ENCOUNTER → 2017-01-13 | Outpatient (CLI) | payer OTHER ==
[2017-01-13 15:06] LABS: BASOPHILS # (AUTO) 0.1 X10^3/uL (0.0-0.1); BASOPHILS % (AUTO) 0.9 % (0.2-1.0); EOSINOPHILS # (AUTO) 0.2 x10^3/uL (0.0-0.2); EOSINOPHILS % (AUTO) 2.4 % (0.9-2.9); HEMATOCRIT 39.5 % (42.0-54.0); HEMOGLOBIN 13.5 g/dL (13.5-18.0); LYMPHOCYTES # (AUTO) 1.8 X10^3/uL (1.3-2.9); LYMPHOCYTES % (AUTO) 26.1 % (21.0-51.0); MEAN CORPUSCULAR HEMOGLOBIN 28.8 pg (27.0-34.0); MEAN CORPUSCULAR HGB CONC 34.1 g/dL (33.0-35.0); MEAN CORPUSCULAR VOLUME 84.5 fL (80.0-100.0); MEAN PLATELET VOLUME 8.1 fL (7.4-11.0); MONOCYTES # (AUTO) 1.1 x10^3/uL (0.3-0.8); MONOCYTES % (AUTO) 15.5 % (0.0-13.0); NEUTROPHILS # (AUTO) 3.8 x10^3/uL (2.2-4.8); NEUTROPHILS % (AUTO) 55.1 % (42.0-75.0); PLATELET COUNT 242 X10^3/uL (150.0-450.0); RED BLOOD COUNT 4.68 X10^6/uL (4.7-6.0); RED CELL DISTRIBUTION WIDTH 16.7 % (11.6-16.5); WHITE BLOOD COUNT 6.8 X10^3/uL (3.6-10.0)
[2017-01-13 15:13] LABS: BLOOD UREA NITROGEN 10 mg/dL (7-18); CALCIUM 8.7 mg/dL (8.5-10.1); CHLORIDE 105 mmol/L (98-107); CREATININE 1.13 mg/dL (0.70-1.30); SODIUM 140 mmol/L (136-145); eGFR BLACK RACES > 60 (>60); eGFR NON BLACK RACES > 60 (>60)
== END ==
LOC: LAB 14:47
PROVIDERS: ATTEND Internal Medicine Cardiovascular Disease
DX: Z79.899 Other long term (current) drug therapy (principal); Z79.01 Long term (current) use of anticoagulants
CPT/HCPCS: 36415; 80048; 85025; 85610

== ENCOUNTER → 2017-02-04 | Outpatient (CLI) | payer OTHER ==
--- NOTE | 2017-02-09 09:59 | US ---
HISTORY: Palpable nodules right chest wall Study: Ultrasound palpable nodules right chest wall Comparison: None Technique: Multiple grayscale sonographic images were obtained. A Findings: Sonographic evaluation was focused to a palpable nodules left lateral chest wall. Resulting images de monstrated nodules measuring 10.5 by 17.6 mm and 4.7 x 7.9 mm. These most likely represent lymph node s however other etiologies could not be entirely excluded as this is a nonspecific finding. IMPRESSION: Well-marginated oblong nodules in the right lateral chest wall as described above most likely represe nting lymph nodes although other etiologies cannot be excluded as sonographically these are nonspecif ic findings. Reported By:
== END ==
LOC: RAD 08:06
PROVIDERS: ATTEND Nurse Practitioner Family
DX: R19.09 Other intra-abdominal and pelvic swelling, mass and lump (principal)
CPT/HCPCS: 76705

== ENCOUNTER 2017-03-13 11:27 | Inpatient (IN) | payer OTHER ==
[2017-03-13] MEDS ORDERED: DUONEB 0.5 MG/3 MG ONE (12:36)
[2017-03-13] MEDS ORDERED: SALINE 3% 15 ML NEB TX ONE (12:36)
[2017-03-13] MEDS: DUONEB 0.5 MG/3 MG NEB SCH ×3 (12:40→20:34)
[2017-03-13 12:56] LABS: BASOPHILS % (AUTO) 0.6 % (0.2-1.0); EOSINOPHILS # (AUTO) 0.1 x10^3/uL (0.0-0.2); EOSINOPHILS % (AUTO) 1.9 % (0.9-2.9); LYMPHOCYTES # (AUTO) 1.3 X10^3/uL (1.3-2.9); LYMPHOCYTES % (AUTO) 16.6 % (21.0-51.0); MEAN CORPUSCULAR HEMOGLOBIN 27.9 pg (27.0-34.0); MEAN CORPUSCULAR HGB CONC 33.2 g/dL (33.0-35.0); MEAN CORPUSCULAR VOLUME 84.1 fL (80.0-100.0); MEAN PLATELET VOLUME 8.9 fL (7.4-11.0); MONOCYTES # (AUTO) 1.7 x10^3/uL (0.3-0.8); MONOCYTES % (AUTO) 20.5 % (0.0-13.0); NEUTROPHILS # (AUTO) 4.9 x10^3/uL (2.2-4.8); NEUTROPHILS % (AUTO) 60.4 % (42.0-75.0); PLATELET COUNT 206 X10^3/uL (150.0-450.0); RED BLOOD COUNT 5.35 X10^6/uL (4.7-6.0); RED CELL DISTRIBUTION WIDTH 16.1 % (11.6-16.5); WHITE BLOOD COUNT 8.1 X10^3/uL (3.6-10.0)
--- NOTE | 2017-03-13 12:59 | RAD ---
HISTORY: Pneumonia. Shortness of breath. Cough. Study: PA and lateral chest Comparison: 11/26/2016, 11/21/2016, CT scan from 11/11/2016 Findings: Minimal interstitial scarring is noted. Minimal atelectatic change/infiltrate is noted in the left l meagan base. Focal nodularity is present in the left lung base, not felt to be significantly changed fr om the prior examinations. A prominent nipple shadow is noted on the left. Mild cardiomegaly is pre sent. Mild thoracic spondylosis is noted. Minimal anterior wedging of a mid thoracic vertebra is no dontae, unchanged. IMPRESSION: 1. Minimal atelectatic change/infiltrate in the left lung base, possibly on the basis of pneumonia. 2. Focal nodularity in the left lung base, felt to most likely be due to chronic interstitial scarri ng , unchanged from the prior CT scan. Reported By:
[2017-03-13] MEDS ORDERED: SALINE 3% 15 ML NEB TX NEB ONE (13:00)
[2017-03-13 13:06] LABS: ALANINE AMINOTRANSFERASE 20 Units/L (12-78); ALBUMIN 3.4 g/dL (3.4-5.0); ALKALINE PHOSPHATASE 72 Units/L (46-116); ASPARTATE AMINO TRANSFERASE 16 Units/L (15-37); BLOOD UREA NITROGEN 11 mg/dL (7-18); CALCIUM 8.6 mg/dL (8.5-10.1); CARBON DIOXIDE 29.2 mmol/L (21-32); CHLORIDE 104 mmol/L (98-107); COR NA(FOR HYPERGLY) 139 mmol/L (136-145); CREATININE 1.08 mg/dL (0.70-1.30); SODIUM 139 mmol/L (136-145); eGFR BLACK RACES > 60 (>60); eGFR NON BLACK RACES > 60 (>60)
[2017-03-13 13:08] LABS: PLATELET MORPHOLOGY COMMENT NORMAL (NORMAL)
[2017-03-13 14:06] VITALS: BMI 31.2
[2017-03-13] MEDS ORDERED: NS 1/2 1000 ML IV 1,000 ML IV ONE (14:08)
[2017-03-13] MEDS: NS 1/2 1000 ML IV 1,000 ML IV SCH (14:47)
[2017-03-13] MEDS: ROBITUSSIN DM PO SCH ×3 (14:48→21:49)
[2017-03-13] MEDS: SOLU-Medrol 125 MG VIAL IVP SCH ×3 (14:48→21:51)
[2017-03-13] MEDS: ZOSYN VIAL 4.5 GM 4.5 GM in NS 100 ML IV 100 ML IV SCH ×2 (14:48→22:58)
--- NOTE | 2017-03-13 15:52 | DR.H&P ---
H&P - History & Physical for Day of: H&P Date: 03/13/17 - Chief Complaint Chief Complaint: FEVER, CHILLS, CCC, WEAKNESS - Allergies Allergies/Adverse Reactions: Allergies Allergy/AdvReac Type Severity Reaction Status Date / Time adhesive tape AdvReac Verified 11/14/16 12:33 allopurinol AdvReac Verified 11/14/16 12:31 diltiazem AdvReac Verified 11/14/16 12:32 - History of Present Illness History of Present Illness: PATIENT IS A 76-YEAR-OLD WHITE MALE WHO WAS A DIRECT ADMIT FROM [facility]. [facility]'S OFFICE WITH COMPLAINTS OF FEVER OR CHILLS COUGH COLD AND CONGESTION FOR APPROXIMATELY 4 DAYS. pATIENT HAS TAKEN A zITHROMAX PACK WELL HAD TO im rOCEPHIN AND STEROID INJECTIONS WITHOUT IMPROVEMENT OF SYMPTOMS. pATIENT HAS A PAST MEDICAL HISTORY OF RECURRING BRONCHITIS, ATROPHY OF, HYPOTHYROIDISM, CHRONIC ATOPIC DERMATITIS. pLAN TO ADMIT PATIENT FOR FURTHER EVALUATION OF RESPIRATORY AND FLULIKE ILLNESS, START iv ANTIBIOTICS, RESPIRATORY THERAPY BLOOD AND SPUTUM CULTURES ON ADMISSION WELL INFLUENZA SWAB. wE'LL OBTAIN ekg ON ADMISSION WELL CONTINUOUS TELEMETRY AND RESUME PATIENT'S HOME MEDICATION - Past Medical History Past Medical History: Arthritis, COPD, Coronary Artery Disease, Depression, GERD , Gout, Hypertension, Hypothyroidism Additional Medical History: 1. ATOPIC DERMATITIS; this dx is given per pt - this has been a chronic problem that started in approximately 12/27 which was several months before being diagnosed with aspergillosis. 2. A-fib; s/p multiple ablation procedure by Dr. Elizondo at [facility]. 3. H/O Pulmonary aspergillosis; treated on two separate occasions since 2013 - Past Surgical History Surgical History: Cholecystectomy, Ortho Surgery, Tonsillectomy, Other Additional Surgical History: 1. Multiple afib ablation procedures performed by Dr. Elizondo at [facility] in [place], [place]. 2. S/P I&D of right axillary abscess; performed at [facility] 11/30 - Family History Family Medical History: MS, Hypertension - Social History Does patient currently use any type of tobacco product: No Have you used tobacco products in the last 12 months: No Type of Tobacco Use: Cigarettes How many years tobacco product used: 5 Does any household member use tobacco: No Alcohol Use: None Drug Use: None - Medications Home Medications: Carvedilol [COREG TAB 25 MG *] 1 tab PO BID 03/13/17 [History Confirmed 03/13/17 ] Dronedarone HCl [MULTAQ TAB 400 MG *] 200 mg PO BID 03/13/17 [History Confirmed 03/13/17] Folic Acid [Folic Acid] 1 tab PO DAILY 03/13/17 [History Confirmed 03/13/17] Furosemide [LASIX TAB 40 MG *] 1 tab PO DAILY 03/13/17 [History Confirmed ] Krill/[place]-3/Dha/Epa/Lipids [Krill Oil 350 mg Softgel] 1 cap PO HS 03/13/17 [ History Confirmed 03/13/17] Potassium Chloride [Klor-Con 10] 1 tab PO DAILY 03/13/17 [History Confirmed ] Warfarin Sodium [Warfarin Sodium] 1 tab PO HS 03/13/17 [History Confirmed ] - Review of Systems Constitutional: Fever, Chills, Weakness Eyes: No Symptoms Reported ENT: No Symptoms Reported Respiratory: Cough, SOB with Excertion, Wheezing Cardiovascular: No Symptoms Reported Gastrointestinal: Diarrhea Genitourinary: No Symptoms Reported Musculoskeletal: No Symptoms Reported Skin: Rash Neurological: No Symptoms Reported - Physical Exam Vital Signs: Temperature 99.7 F Pulse Rate [Right Brachial] 100 Respiratory Rate 21 Blood Pressure [Left Arm] 103/53 Blood Pressure [Right Arm] 190/85 Blood Pressure 121/62 O2 Sat by Pulse Oximetry 94 Oriented: Normal Eyes: Normal Ear: Normal Nose: Normal Throat: Normal Respiratory: Rhonchi Throughout, RLL Diminished, LLL Diminished Cardiovascular: Irregular : Normal Auscultation: Bowel Sounds: Normal Palpation: Normal Tenderness: Normal Skin: Decreased [place]urg[place], Red Musculoskeletal: Normal Psychiatric: Normal Mood Description: Calm Speech Pattern: Clear, Appropriate - Assessment/Plan (1) Acute bronchitis Status: Acute Plan: ADMIT, PNEUMONIA PROTOCOL. BLOOD AND SPUTUM CULTURES, IV ATBX. RESP THERAPY AND SUPPLEMENTAL O2, EKG ON ADMISSION TELEMETRY. RESUME HOME MEDS (2) Flu-like symptoms Status: Acute (3) Atrial fibrillation status post cardioversion Status: Chronic (4) Essential hypertension Status: Chronic (5) Hypothyroidism Status: Chronic
[2017-03-13] MEDS ORDERED: EUCERIN TOP PRN (18:13)
[2017-03-13] MEDS: ZITHROMAX INJ 500 MG VIAL 500 MG in NS 250 ML IV 250 ML IV SCH (19:15)
[2017-03-13] MEDS: TUSSIONEX PENNKINETIC SUSP PO PRN (20:28)
[2017-03-13] MEDS: MULTAQ PO SCH (20:29)
[2017-03-13] MEDS: TAMIFLU PO SCH ×2 (20:29→21:50)
[2017-03-13] MEDS: HYTRIN PO SCH ×2 (20:30→20:31)
[2017-03-13] MEDS: COREG TAB 25 MG PO SCH (20:31)
[2017-03-13] MEDS: COUMADIN TAB 5 MG PO SCH (20:32)
[2017-03-13] MEDS: PULMICORT NEB TX 0.5 MG NEB SCH (20:34)
[2017-03-14] MEDS: DUONEB 0.5 MG/3 MG NEB SCH ×5 (01:12→16:17)
[2017-03-14] MEDS: ZOSYN VIAL 4.5 GM 4.5 GM in NS 100 ML IV 100 ML IV SCH ×3 (05:21→21:22)
[2017-03-14 06:03] LABS: BASOPHILS % (AUTO) 0.1 % (0.2-1.0); HEMATOCRIT 38.5 % (42.0-54.0); LYMPHOCYTES # (AUTO) 0.7 X10^3/uL (1.3-2.9); MEAN CORPUSCULAR HGB CONC 33.8 g/dL (33.0-35.0); MEAN CORPUSCULAR VOLUME 82.7 fL (80.0-100.0); MEAN PLATELET VOLUME 9.2 fL (7.4-11.0); MONOCYTES # (AUTO) 0.2 x10^3/uL (0.3-0.8); MONOCYTES % (AUTO) 3.9 % (0.0-13.0); NEUTROPHILS # (AUTO) 3.2 x10^3/uL (2.2-4.8); PLATELET COUNT 179 X10^3/uL (150.0-450.0); RED BLOOD COUNT 4.66 X10^6/uL (4.7-6.0); WHITE BLOOD COUNT 4.2 X10^3/uL (3.6-10.0)
[2017-03-14 06:09] LABS: ALANINE AMINOTRANSFERASE 17 Units/L (12-78); ALBUMIN 2.6 g/dL (3.4-5.0); ALKALINE PHOSPHATASE 53 Units/L (46-116); ASPARTATE AMINO TRANSFERASE 13 Units/L (15-37); BLOOD UREA NITROGEN 13 mg/dL (7-18); CALCIUM 7.8 mg/dL (8.5-10.1); CARBON DIOXIDE 24.7 mmol/L (21-32); CHLORIDE 104 mmol/L (98-107); COR CA(FOR HYPOALB) 8.9 mg/dL (8.5-10.1); COR NA(FOR HYPERGLY) 140 mmol/L (136-145); CREATININE 0.95 mg/dL (0.70-1.30); SODIUM 138 mmol/L (136-145); TOTAL PROTEIN 5.7 g/dL (6.4-8.2); eGFR BLACK RACES > 60 (>60); eGFR NON BLACK RACES > 60 (>60)
[2017-03-14] MEDS: NS 1/2 1000 ML IV 1,000 ML IV SCH ×2 (07:03→17:15)
[2017-03-14 07:18] LABS: PLATELET MORPHOLOGY COMMENT NORMAL (NORMAL)
[2017-03-14] MEDS: TAMIFLU PO SCH ×2 (08:25→21:24)
[2017-03-14] MEDS: ZITHROMAX INJ 500 MG VIAL 500 MG in NS 250 ML IV 250 ML IV SCH (08:25)
[2017-03-14] MEDS: SYNTHROID 125 mcg TAB PO SCH (08:26)
[2017-03-14] MEDS: COREG TAB 25 MG PO SCH ×2 (08:28→21:24)
[2017-03-14] MEDS: ROBITUSSIN DM PO SCH ×4 (08:29→21:58)
[2017-03-14] MEDS: FOLIC ACID TAB 1 MG PO SCH (08:29)
[2017-03-14] MEDS: MULTAQ PO SCH (08:30)
[2017-03-14] MEDS ORDERED: LASIX PO PRN (08:40)
[2017-03-14] MEDS ORDERED: MICRO K EXTEN CAP 10 MEQ PO PRN (08:42)
[2017-03-14] MEDS: PULMICORT NEB TX 0.5 MG NEB SCH ×2 (08:45→20:29)
[2017-03-14] MEDS ORDERED: MICRO K EXTEN CAP 10 MEQ PO SCH (09:00)
[2017-03-14] MEDS ORDERED: PATIENT'S HOME MEDICATION (Potassium Chloride [Klor-Con 10] 1 TAB) PO SCH (09:00)
[2017-03-14] MEDS ORDERED: LEVAQUIN PREMIX IV 750 MG 750 MG/150 ML BAG IV SCH (09:00)
[2017-03-14] MEDS ORDERED: LASIX PO SCH (09:00)
[2017-03-14] MEDS: PROTONIX INJ 40 MG VIAL IVP SCH (18:15)
[2017-03-14 18:20] LABS: CKMB % 4.8 % (<4); CREATINE KINASE 29 Units/L (39-308); CREATINE KINASE MB 1.4 ng/mL (0-4.0); TROPONIN I < 0.02 ng/mL (0-1.5)
[2017-03-14] MEDS ORDERED: STERILE WATER IRRIGATION IR ONE (18:52)
[2017-03-14] MEDS: TUSSIONEX PENNKINETIC SUSP PO PRN (21:22)
[2017-03-14] MEDS: KENALOG CREAM TOP SCH (21:23)
[2017-03-14] MEDS: COUMADIN TAB 5 MG PO SCH (21:24)
[2017-03-14 23:04] LABS: CREATINE KINASE MB 1.6 ng/mL (0-4.0); TROPONIN I 0.02 ng/mL (0-1.5)
[2017-03-15] MEDS: XOPENEX 1.25 MG/3 ML NEBULE NEB SCH ×4 (00:57→17:07)
[2017-03-15 04:57] LABS: ALANINE AMINOTRANSFERASE 16 Units/L (12-78); ALBUMIN 2.6 g/dL (3.4-5.0); ALKALINE PHOSPHATASE 42 Units/L (46-116); ASPARTATE AMINO TRANSFERASE 14 Units/L (15-37); BLOOD UREA NITROGEN 15 mg/dL (7-18); CALCIUM 8.2 mg/dL (8.5-10.1); CARBON DIOXIDE 26.7 mmol/L (21-32); CHLORIDE 107 mmol/L (98-107); COR CA(FOR HYPOALB) 9.3 mg/dL (8.5-10.1); COR NA(FOR HYPERGLY) 142 mmol/L (136-145); CREATININE 1.02 mg/dL (0.70-1.30); SODIUM 141 mmol/L (136-145); TOTAL PROTEIN 5.7 g/dL (6.4-8.2); eGFR BLACK RACES > 60 (>60); eGFR NON BLACK RACES > 60 (>60)
[2017-03-15 04:58] LABS: CKMB % 5.7 % (<4); CREATINE KINASE MB 1.7 ng/mL (0-4.0); TROPONIN I 0.03 ng/mL (0-1.5)
[2017-03-15 05:06] LABS: BASOPHILS % (AUTO) 0.1 % (0.2-1.0); HEMATOCRIT 38.8 % (42.0-54.0); HEMOGLOBIN 12.9 g/dL (13.5-18.0); LYMPHOCYTES # (AUTO) 1.1 X10^3/uL (1.3-2.9); LYMPHOCYTES % (AUTO) 8.7 % (21.0-51.0); MEAN CORPUSCULAR HEMOGLOBIN 27.6 pg (27.0-34.0); MEAN CORPUSCULAR HGB CONC 33.3 g/dL (33.0-35.0); MEAN CORPUSCULAR VOLUME 82.8 fL (80.0-100.0); MEAN PLATELET VOLUME 9.2 fL (7.4-11.0); MONOCYTES # (AUTO) 1.4 x10^3/uL (0.3-0.8); MONOCYTES % (AUTO) 10.9 % (0.0-13.0); NEUTROPHILS # (AUTO) 10.1 x10^3/uL (2.2-4.8); NEUTROPHILS % (AUTO) 80.3 % (42.0-75.0); PLATELET COUNT 199 X10^3/uL (150.0-450.0); RED BLOOD COUNT 4.69 X10^6/uL (4.7-6.0); RED CELL DISTRIBUTION WIDTH 16.1 % (11.6-16.5); WHITE BLOOD COUNT 12.5 X10^3/uL (3.6-10.0)
[2017-03-15] MEDS: ZOSYN VIAL 4.5 GM 4.5 GM in NS 100 ML IV 100 ML IV SCH ×3 (05:54→22:30)
[2017-03-15] MEDS: NS 1/2 1000 ML IV 1,000 ML IV SCH ×2 (05:55→19:33)
--- NOTE | 2017-03-15 07:55 | RAD ---
Examination: Portable AP upright chest History: Bronchitis, influenza Comparison reference 03/13/2017 Findings: Continued cardiomegaly with surgical device at the left cardiac margin consistent with left atrial appendage exclusion clip. The right lung is clear. There remains a mild hazy density at the l eft base which may represent residual infiltrate or atelectasis. No complicating pneumothorax is seen . Impression: Little significant change since prior study. Persistent findings left lower lung. Stable cardiac prominence with postsurgical findings. Reported By:
[2017-03-15] MEDS: PULMICORT NEB TX 0.5 MG NEB SCH ×2 (08:28→21:18)
[2017-03-15] MEDS: PROTONIX INJ 40 MG VIAL IVP SCH (09:27)
[2017-03-15] MEDS: SYNTHROID 125 mcg TAB PO SCH (09:28)
[2017-03-15] MEDS: ROBITUSSIN DM PO SCH ×4 (09:28→21:02)
[2017-03-15] MEDS: TAMIFLU PO SCH ×2 (09:28→21:01)
[2017-03-15] MEDS: COREG TAB 25 MG PO SCH ×2 (09:28→20:57)
[2017-03-15] MEDS: ZITHROMAX INJ 500 MG VIAL 500 MG in NS 250 ML IV 250 ML IV SCH (09:28)
[2017-03-15] MEDS: FOLIC ACID TAB 1 MG PO SCH (09:28)
[2017-03-15] MEDS: KENALOG CREAM TOP SCH ×2 (09:29→21:10)
[2017-03-15 11:17] LABS: CKMB % 3.9 % (<4); CREATINE KINASE MB 1.5 ng/mL (0-4.0); TROPONIN I 0.03 ng/mL (0-1.5)
[2017-03-15] MEDS ORDERED: NS 1/2 1000 ML IV 1,000 ML IV ONE (19:26)
[2017-03-15] MEDS: COUMADIN TAB 5 MG PO SCH (20:58)
[2017-03-16] MEDS: XOPENEX 1.25 MG/3 ML NEBULE NEB SCH ×5 (00:50→17:38)
[2017-03-16] MEDS: ZOSYN VIAL 4.5 GM 4.5 GM in NS 100 ML IV 100 ML IV SCH ×3 (05:50→21:13)
[2017-03-16 06:16] LABS: BASOPHILS % (AUTO) 0.2 % (0.2-1.0); EOSINOPHILS # (AUTO) 0.1 x10^3/uL (0.0-0.2); EOSINOPHILS % (AUTO) 0.7 % (0.9-2.9); HEMATOCRIT 38.6 % (42.0-54.0); HEMOGLOBIN 12.7 g/dL (13.5-18.0); LYMPHOCYTES # (AUTO) 1.7 X10^3/uL (1.3-2.9); LYMPHOCYTES % (AUTO) 18.1 % (21.0-51.0); MEAN CORPUSCULAR HEMOGLOBIN 27.6 pg (27.0-34.0); MEAN CORPUSCULAR HGB CONC 33.1 g/dL (33.0-35.0); MEAN CORPUSCULAR VOLUME 83.5 fL (80.0-100.0); MEAN PLATELET VOLUME 9.1 fL (7.4-11.0); MONOCYTES # (AUTO) 1.3 x10^3/uL (0.3-0.8); MONOCYTES % (AUTO) 13.5 % (0.0-13.0); NEUTROPHILS # (AUTO) 6.5 x10^3/uL (2.2-4.8); NEUTROPHILS % (AUTO) 67.5 % (42.0-75.0); PLATELET COUNT 190 X10^3/uL (150.0-450.0); RED BLOOD COUNT 4.62 X10^6/uL (4.7-6.0); RED CELL DISTRIBUTION WIDTH 16.5 % (11.6-16.5); WHITE BLOOD COUNT 9.7 X10^3/uL (3.6-10.0)
[2017-03-16 06:29] LABS: ALANINE AMINOTRANSFERASE 17 Units/L (12-78); ALBUMIN 2.4 g/dL (3.4-5.0); ALKALINE PHOSPHATASE 43 Units/L (46-116); ASPARTATE AMINO TRANSFERASE 14 Units/L (15-37); BLOOD UREA NITROGEN 14 mg/dL (7-18); CARBON DIOXIDE 28.5 mmol/L (21-32); CHLORIDE 109 mmol/L (98-107); COR CA(FOR HYPOALB) 9.3 mg/dL (8.5-10.1); SODIUM 144 mmol/L (136-145); TOTAL PROTEIN 5.4 g/dL (6.4-8.2); eGFR BLACK RACES > 60 (>60); eGFR NON BLACK RACES > 60 (>60)
[2017-03-16] MEDS: PULMICORT NEB TX 0.5 MG NEB SCH ×2 (09:37→21:37)
[2017-03-16] MEDS: PROTONIX INJ 40 MG VIAL IVP SCH (09:40)
[2017-03-16] MEDS: ZITHROMAX INJ 500 MG VIAL 500 MG in NS 250 ML IV 250 ML IV SCH (09:40)
[2017-03-16] MEDS: KENALOG CREAM TOP SCH ×2 (09:41→21:14)
[2017-03-16] MEDS: ROBITUSSIN DM PO SCH ×4 (09:41→21:13)
[2017-03-16] MEDS: FOLIC ACID TAB 1 MG PO SCH (09:41)
[2017-03-16] MEDS: COREG TAB 25 MG PO SCH ×2 (09:41→21:14)
[2017-03-16] MEDS: SYNTHROID 125 mcg TAB PO SCH (09:41)
[2017-03-16] MEDS: TAMIFLU PO SCH ×2 (09:41→21:13)
[2017-03-16] MEDS ORDERED: STERILE WATER IRRIGATION IR ONE (20:20)
[2017-03-16] MEDS: COUMADIN TAB 5 MG PO SCH (21:13)
[2017-03-16] MEDS: TUSSIONEX PENNKINETIC SUSP PO PRN (21:13)
[2017-03-17] MEDS: XOPENEX 1.25 MG/3 ML NEBULE NEB SCH ×3 (00:40→11:46)
[2017-03-17] MEDS: ZOSYN VIAL 4.5 GM 4.5 GM in NS 100 ML IV 100 ML IV SCH (06:03)
[2017-03-17] MEDS: NS 1/2 1000 ML IV 1,000 ML IV SCH ×2 (06:04→07:05)
[2017-03-17 06:21] LABS: ALANINE AMINOTRANSFERASE 15 Units/L (12-78); ALBUMIN 2.4 g/dL (3.4-5.0); ALKALINE PHOSPHATASE 46 Units/L (46-116); ASPARTATE AMINO TRANSFERASE 15 Units/L (15-37); BLOOD UREA NITROGEN 12 mg/dL (7-18); CARBON DIOXIDE 28.4 mmol/L (21-32); CHLORIDE 107 mmol/L (98-107); COR CA(FOR HYPOALB) 9.3 mg/dL (8.5-10.1); CREATININE 0.99 mg/dL (0.70-1.30); SODIUM 144 mmol/L (136-145); TOTAL PROTEIN 5.2 g/dL (6.4-8.2); eGFR BLACK RACES > 60 (>60); eGFR NON BLACK RACES > 60 (>60)
[2017-03-17 06:26] LABS: BASOPHILS % (AUTO) 0.3 % (0.2-1.0); EOSINOPHILS # (AUTO) 0.1 x10^3/uL (0.0-0.2); EOSINOPHILS % (AUTO) 1.5 % (0.9-2.9); HEMATOCRIT 37.1 % (42.0-54.0); HEMOGLOBIN 12.6 g/dL (13.5-18.0); LYMPHOCYTES # (AUTO) 1.8 X10^3/uL (1.3-2.9); LYMPHOCYTES % (AUTO) 21.3 % (21.0-51.0); MEAN CORPUSCULAR HEMOGLOBIN 28.3 pg (27.0-34.0); MEAN CORPUSCULAR VOLUME 83.2 fL (80.0-100.0); MEAN PLATELET VOLUME 9.1 fL (7.4-11.0); MONOCYTES # (AUTO) 1.6 x10^3/uL (0.3-0.8); MONOCYTES % (AUTO) 18.4 % (0.0-13.0); NEUTROPHILS # (AUTO) 5.1 x10^3/uL (2.2-4.8); NEUTROPHILS % (AUTO) 58.5 % (42.0-75.0); PLATELET COUNT 180 X10^3/uL (150.0-450.0); RED BLOOD COUNT 4.46 X10^6/uL (4.7-6.0); WHITE BLOOD COUNT 8.6 X10^3/uL (3.6-10.0)
--- NOTE | 2017-03-17 07:10 | RAD ---
Examination: Portable AP chest History: Bronchitis, influenza Comparison 03/15/2017 Findings: Continued cardiac enlargement. There is no significant change in appearance of harder lungs . Suggestion of slight residual infiltrate or atelectasis retrocardiac left base. No new abnormality demonstrated. Impression: No change since 03/15/2017. Reported By:
[2017-03-17] MEDS: PROTONIX INJ 40 MG VIAL IVP SCH (08:00)
[2017-03-17] MEDS: TAMIFLU PO SCH (08:00)
[2017-03-17] MEDS: KENALOG CREAM TOP SCH (08:00)
[2017-03-17] MEDS: SYNTHROID 125 mcg TAB PO SCH (08:00)
[2017-03-17] MEDS: ZITHROMAX INJ 500 MG VIAL 500 MG in NS 250 ML IV 250 ML IV SCH (08:00)
[2017-03-17] MEDS: FOLIC ACID TAB 1 MG PO SCH (08:00)
[2017-03-17] MEDS: ROBITUSSIN DM PO SCH ×2 (08:00→12:25)
[2017-03-17] MEDS: COREG TAB 25 MG PO SCH (08:00)
[2017-03-17] MEDS: PULMICORT NEB TX 0.5 MG NEB SCH (08:45)
[2017-03-17 12:24] VITALS: BP 133/87
== END 2017-03-17 12:35 | disposition home or self-care (01) | DRG 203 ==
LOC: UNDOADMIN 11:27 → MED/SURG 11:27
PROVIDERS: ADMIT Internal Medicine; ATTEND Internal Medicine
DX: J20.8 Acute bronchitis due to other specified organisms (principal); J10.1 Influenza due to other identified influenza virus with other respiratory manifestations; I48.91 Unspecified atrial fibrillation; R06.03 Acute respiratory distress; E03.8 Other specified hypothyroidism; I25.10 Atherosclerotic heart disease of native coronary artery without angina pectoris; K21.9 Gastro-esophageal reflux disease without esophagitis; I10 Essential (primary) hypertension; Z79.01 Long term (current) use of anticoagulants; N40.0 Benign prostatic hyperplasia without lower urinary tract symptoms; R07.89 Other chest pain; M19.90 Unspecified osteoarthritis, unspecified site
CPT/HCPCS: 36415; 71010; 71020; 71045; 80053; 82550; 82553; 84484; 85025; 85610; 87040; 87070; 87205; 87502; 93005; 93010; 94640; 94760; 99231; A4217; A4222; C9113; G9035; J0456; J2543; J2930; J7620; J7626

== ENCOUNTER → 2017-03-26 | Outpatient (CLI) | payer OTHER ==
[2017-03-17 12:24] VITALS: BP 133/87
--- NOTE | 2017-03-26 14:21 | RAD ---
Examination: Chest, PA and lateral views History: SOB Comparison 03/17/2017 Findings: Continued upper normal heart size with dilated aorta and no change in position of the surgi harish device at the left atrial appendage. Small fibrotic scar at the cardiac apex. Linear scar at the cardiac apex. Development of linear atelectasis at the level of right diaphragm. Impression: 1. Stable position of cardiac prominence, dilated aorta and left atrial appendage exclusion device. 2. Appearance of mild subsegmental atelectasis right lower lobe. Reported By:
== END ==
LOC: RAD 13:37
PROVIDERS: ATTEND Internal Medicine
DX: R05 Cough (principal); R06.02 Shortness of breath
CPT/HCPCS: 71046

== ENCOUNTER 2018-01-21 09:40 | Inpatient (IN) ==
[2018-01-21] MEDS ORDERED: DUONEB 0.5 MG/3 MG NEB PRN (11:07)
[2018-01-21 11:17] LABS: BASOPHILS # (AUTO) 0.1 X10^3/uL (0.0-0.1); BASOPHILS % (AUTO) 0.7 % (0.2-1.0); EOSINOPHILS # (AUTO) 0.1 x10^3/uL (0.0-0.2); EOSINOPHILS % (AUTO) 1.7 % (0.9-2.9); HEMATOCRIT 30.7 % (42.0-54.0); HEMOGLOBIN 10.4 g/dL (13.5-18.0); LYMPHOCYTES # (AUTO) 1.2 X10^3/uL (1.3-2.9); LYMPHOCYTES % (AUTO) 16.5 % (21.0-51.0); MEAN CORPUSCULAR HEMOGLOBIN 28.5 pg (27.0-34.0); MEAN CORPUSCULAR VOLUME 83.9 fL (80.0-100.0); MEAN PLATELET VOLUME 8.1 fL (7.4-11.0); MONOCYTES # (AUTO) 1.2 x10^3/uL (0.3-0.8); MONOCYTES % (AUTO) 16.6 % (0.0-13.0); NEUTROPHILS # (AUTO) 4.8 x10^3/uL (2.2-4.8); NEUTROPHILS % (AUTO) 64.5 % (42.0-75.0); PLATELET COUNT 275 X10^3/uL (150.0-450.0); RED BLOOD COUNT 3.66 X10^6/uL (4.7-6.0); RED CELL DISTRIBUTION WIDTH 17.1 % (11.6-16.5); WHITE BLOOD COUNT 7.5 X10^3/uL (3.6-10.0)
[2018-01-21 11:25] LABS: ALANINE AMINOTRANSFERASE 10 Units/L (12-78); ALBUMIN 2.4 g/dL (3.4-5.0); ALKALINE PHOSPHATASE 69 Units/L (46-116); ASPARTATE AMINO TRANSFERASE 15 Units/L (15-37); BLOOD UREA NITROGEN 20 mg/dL (7-18); CALCIUM 7.6 mg/dL (8.5-10.1); CARBON DIOXIDE 28.7 mmol/L (21-32); CHLORIDE 106 mmol/L (98-107); COR CA(FOR HYPOALB) 8.9 mg/dL (8.5-10.1); CREATININE 3.47 mg/dL (0.70-1.30); SODIUM 142 mmol/L (136-145); TOTAL PROTEIN 5.9 g/dL (6.4-8.2); eGFR NON BLACK RACES 18 (>60)
--- NOTE | 2018-01-21 13:27 | DR.UPDATE ---
H&P Update History and Physical Update: History and Physical reviewed and patient examined. Changes noted: NO Yes with the following:Agree with H&P, will place picc for correction abx therapy Procedures (ALL) - Central Line Placement PCM.CLCO: written consent Time out performed: Yes Patient placed pm monitor/pulse ox: Yes prep: mask, gown, gloves, other Centrial line prep: chlorhexidine scrub Local anesthsia used: lidocane 1% Ultrasound used for placement: Yes (left basilic id'd via u/s) Central line lumen ininserted: double (5fr power picc. trimmed to 47cm. 0cm exposed) Post procedure: good blood return, all ports aspirated, flushed,capped, sterile dressing applied Post procedure xray: tip oc catheter in good position, no pneumothorax seen Patient tolerated procedure: Yes Complications: none
[2018-01-21 13:32] VITALS: BMI 31.7
[2018-01-21 13:41] LABS: BILIRUBIN,URINE NEGATIVE (NEGATIVE); BLOOD/HEMOGLOBIN,URINE 1+ (NEGATIVE); GLUCOSE, URINE NEGATIVE (NEGATIVE); KETONES,URINE NEGATIVE (NEGATIVE); LEUKOCYTE ESTERASE ,URINE NEGATIVE (NEGATIVE); NITRITES,URINE NEGATIVE (NEGATIVE); PH,URINE 6.5 (5.0 - 8.0); PROTEIN,URINE 2+ (NEGATIVE); UROBILINOGEN,URINE NORMAL (NORMAL)
[2018-01-21 13:51] LABS: APPEARANCE,URINE CLEAR (CLEAR); COLOR,URINE YELLOW (YELLOW)
[2018-01-21] MEDS ORDERED: PERCOCET TAB 5/325 MG PO PRN ×2 (13:51→13:55)
[2018-01-21 13:52] LABS: BACTERIA,URINE TRACE /HPF (NEGATIVE); HYALINE CASTS, URINE FEW /LPF (NEGATIVE); RBC,URINE 0-2 /HPF (NONE SEEN); SQUAMOUS EPITHELIAL CELL,UR RARE /HPF (NEGATIVE)
[2018-01-21] MEDS ORDERED: PROVENTIL NEB TX 0.083% 2.5MG/ 3ML IN PRN (13:55)
[2018-01-21] MEDS ORDERED: VOLTAREN 1 % GEL MULTI DOSE TUBE TOP PRN (13:55)
--- NOTE | 2018-01-21 13:58 | RAD ---
HISTORY: PICC line placement Study: Single-view chest, done portably Comparison: 01/19/2018. Findings: Left-sided PICC line is present with the tip in the lower SV C. There is a left atrial appendage clamp present. Trachea is midline. There is cardiomegaly. Pulmonary vascular congestion is seen. Increased interstitial markings are present bilaterally, likely represent CHF or interstitial infiltrates. There are bilateral pleural effusions. No pneumothorax is seen. Osseous structures are intact. IMPRESSION: Satisfactory appearance of the PICC line with the tip in the lower SV C. No pneumothorax is seen. Cardiomegaly with increasing interstitial markings bilaterally, most likely due to CHF, possibly due to interstitial pneumonia. There are bilateral pleural effusions. Reported By:
[2018-01-21] MEDS: ASPIRIN EC 81 MG PO SCH (14:54)
[2018-01-21] MEDS: COREG TAB 12.5 MG PO SCH ×2 (14:54→20:28)
[2018-01-21] MEDS: FOLIC ACID TAB 1 MG PO SCH (14:54)
[2018-01-21] MEDS: SYNTHROID 125 mcg TAB PO SCH (14:55)
[2018-01-21] MEDS: NS 1000 ML 1,000 ML IV SCH (14:55)
[2018-01-21] MEDS ORDERED: STERILE WATER IRRIGATION IR ONE (20:07)
[2018-01-21] MEDS: BROVANA IN SCH (20:33)
[2018-01-21] MEDS: PULMICORT NEB TX 0.5 MG NEB SCH (20:34)
[2018-01-21] MEDS ORDERED: FLOMAX PO SCH (21:00)
[2018-01-22] MEDS: NS 1000 ML 1,000 ML IV SCH (04:39)
[2018-01-22 05:19] LABS: BASOPHILS % (AUTO) 0.4 % (0.2-1.0); EOSINOPHILS # (AUTO) 0.1 x10^3/uL (0.0-0.2); EOSINOPHILS % (AUTO) 1.8 % (0.9-2.9); HEMATOCRIT 28.5 % (42.0-54.0); HEMOGLOBIN 9.6 g/dL (13.5-18.0); LYMPHOCYTES % (AUTO) 15.1 % (21.0-51.0); MEAN CORPUSCULAR HEMOGLOBIN 28.3 pg (27.0-34.0); MEAN CORPUSCULAR HGB CONC 33.8 g/dL (33.0-35.0); MEAN CORPUSCULAR VOLUME 83.5 fL (80.0-100.0); MEAN PLATELET VOLUME 8.3 fL (7.4-11.0); MONOCYTES # (AUTO) 1.1 x10^3/uL (0.3-0.8); MONOCYTES % (AUTO) 16.5 % (0.0-13.0); NEUTROPHILS # (AUTO) 4.3 x10^3/uL (2.2-4.8); NEUTROPHILS % (AUTO) 66.2 % (42.0-75.0); PLATELET COUNT 270 X10^3/uL (150.0-450.0); RED BLOOD COUNT 3.41 X10^6/uL (4.7-6.0); RED CELL DISTRIBUTION WIDTH 16.8 % (11.6-16.5); WHITE BLOOD COUNT 6.5 X10^3/uL (3.6-10.0)
[2018-01-22 05:33] LABS: ALANINE AMINOTRANSFERASE 8 Units/L (12-78); ALBUMIN 2.1 g/dL (3.4-5.0); ALKALINE PHOSPHATASE 65 Units/L (46-116); ASPARTATE AMINO TRANSFERASE 13 Units/L (15-37); BLOOD UREA NITROGEN 20 mg/dL (7-18); CALCIUM 7.3 mg/dL (8.5-10.1); CARBON DIOXIDE 26.8 mmol/L (21-32); CHLORIDE 106 mmol/L (98-107); COR CA(FOR HYPOALB) 8.8 mg/dL (8.5-10.1); CREATININE 3.25 mg/dL (0.70-1.30); MAGNESIUM 1.2 mg/dL (1.7-2.9); SODIUM 142 mmol/L (136-145); TOTAL PROTEIN 5.4 g/dL (6.4-8.2); eGFR NON BLACK RACES 20 (>60)
[2018-01-22 05:36] LABS: LACTIC ACID 0.8 mmol/L (0.4-2.0)
[2018-01-22 06:05] LABS: ERYTHROCYTE SEDIMENTATION RATE 35 MM/HOUR (0-15)
--- NOTE | 2018-01-22 06:48 | RAD ---
HISTORY: Shortness of breath Study: Single-view chest Comparison: 01/21/2018. Findings: Left-sided PICC line is again seen with the tip in the lower SVC. A left atrial appendage clamp is again seen. Trachea is midline. There is cardiomegaly with pulmonary vascular congestion signs of CHF and pulmonary interstitial edema are again seen with bilateral pleural effusions. There is no significant interval change. IMPRESSION: Pulmonary edema pattern without significant interval change. Reported By:
[2018-01-22] MEDS: ASPIRIN EC 81 MG PO SCH (08:49)
[2018-01-22] MEDS: FOLIC ACID TAB 1 MG PO SCH (08:49)
[2018-01-22] MEDS: COREG TAB 12.5 MG PO SCH (08:49)
[2018-01-22] MEDS: SYNTHROID 125 mcg TAB PO SCH (08:50)
[2018-01-22] MEDS ORDERED: RABEPRAZOLE 20 MG PO SCH (09:00)
[2018-01-22] MEDS ORDERED: PROTONIX INJ 40 MG VIAL IVP SCH (09:00)
[2018-01-22] MEDS ORDERED: MILK OF MAGNESIA PO SCH (09:00)
[2018-01-22] MEDS ORDERED: LASIX IVP ONE (10:27)
[2018-01-22] MEDS: PULMICORT NEB TX 0.5 MG NEB SCH (11:55)
[2018-01-22] MEDS: BROVANA IN SCH (11:55)
--- NOTE | 2018-01-22 12:24 | DR.H&P ---
H&P - History & Physical for Day of: H&P Date: 01/21/18 - Chief Complaint Chief Complaint: SOB, LOWER EXTREMITY SWELLING, N/V, RIGHT ARM PAIN - History of Present Illness History of Present Illness: 77 WM DIRECT ADMIT FROM DR MATT OFFICE WITH CO SOB AND INCREASED LOWER EXTREMITY SWELLING. PT WAS RECENTLY DX WITH ACUTE RENAL FAILURE. PT HAD RIGHT OLECRANON BURSITIS WITH CELLULITIS APPROX 2 WEEKS AGO AND TREATED AT [facility] WITH ORTHO INTERVENTION, IV ATBX. PT HAD ACUTE ONSET OF RENAL FAILURE AND WAS TRANSFERRED TO [place] FOR [employer] CONSULT. PT HAD ORTHO SURGERY WHILE THERE PER DR MANDEL. PT WAS RELEASED FROM [facility] ON 01/14 WITH FAMILY REPORTING CREAT ~3.8 ON PO BACTRIM. AFTER D/C PT HAS INCREASED SOB AND DIFFUSE SWELLING. PT STOPPED TAKING BACTRIM ON THURSDAY DUE TO N/V. PT CONTINUED WITH SWELLING, CREAT 08/24 3.47. PT'S BASLINE CREAT NORMAL 1. PT CXR DONE ON FRIDAY 08/18 WITH BASILAR EFFUSIONS. PMH AFIB, HTN, BPH, OA, DERMATITIS, COPD. PT ADMITTED FOR TREATMENT OF SOB, CHF EXACERBATION AN MANGEMENT OF ACUTE MEDICATION INDUCED RENAL FAILURE. - Past Medical History Past Medical History: Arthritis, COPD, Coronary Artery Disease, Depression, GERD, Gout, Hypertension, Hypothyroidism Additional Medical History: 1. ATOPIC DERMATITIS; this dx is given per pt - this has been a chronic problem that started in approximately 12/27 which was several months before being diagnosed with aspergillosis. 2. A-fib; s/p multiple ablation procedure by Dr. Elizondo at [facility]. 3. H/O Pulmonary aspergillosis; treated on two separate occasions since 2013 - Past Surgical History Surgical History: Cholecystectomy, Ortho Surgery, Tonsillectomy, Other Additional Surgical History: 1. Multiple afib ablation procedures performed by Dr. Elizondo at [facility] in [place], [place]. 2. S/P I&D of right axillary abscess; performed at [facility] 11/30 - Family History Family Medical History: CT, Hypertension - Social History Does patient currently use any type of tobacco product: No Have you used tobacco products in the last 12 months: No Type of Tobacco Use: None Alcohol Use: None Drug Use: None - Medications Home Medications: adhesive tape Adverse Reaction (Verified 11/14/16 12:33) allopurinol Adverse Reaction (Verified 11/14/16 12:31) diltiazem Adverse Reaction (Verified 11/14/16 12:32) CONTINUE taking the following medications albuterol sulfate 2.5 mg INHALATION QID PRN 01/21/18 [History] aspirin 81 mg PO DAILY 01/21/18 [History] carvedilol 12.5 mg PO BID 01/21/18 [History] diclofenac sodium 1 ea TOPICAL QID PRN 01/21/18 [History] oxycodone-acetaminophen 1 tab PO Q4H PRN 01/21/18 [History] rabeprazole 20 mg PO DAILY 01/21/18 [History] - Review of Systems Constitutional: Weakness Eyes: No Symptoms Reported ENT: No Symptoms Reported Respiratory: Shortness of Breath, SOB with Excertion Cardiovascular: Edema Gastrointestinal: Nausea, Vomiting Genitourinary: No Symptoms Reported Musculoskeletal: Arm Pain, Leg Pain Skin: Wound (RIGHT ELBOW) Neurological: Weakness - Physical Exam Vital Signs: Temperature 98.4 F Pulse Rate [Left Brachial] 55 Pulse Rate 70 Respiratory Rate 20 Blood Pressure [Left Arm] 119/57 Blood Pressure [Right Arm] 126/79 Blood Pressure 133/87 O2 Sat by Pulse Oximetry 99 Oriented: Normal Eyes: Normal Ear: Normal Nose: Normal Throat: Normal Respiratory: RLL Diminished, LLL Diminished Cardiovascular: Normal, Edema (+2 BILATERAL LOWER EXTREMITIES) Auscultation: Bowel Sounds: Normal Palpation: Normal Tenderness: Normal Skin: Decreased Turgur, Wound (RIGHT ELBOW, CLOSED WOUND WITH SUTURES INTACT, MILD LOCALIZED SWELLING, NO REDNESS OR DISCHARGE), Bruising Musculoskeletal: Right, Elbow, Forearm, Wrist, Tender Psychiatric: Anxiety Affect: Anxious Speech Pattern: Clear, Appropriate - Assessment/Plan (1) Acute renal failure Status: Acute Plan: ADMIT, CBC CMP CXR AND EKG ON ADMISSION. RESP CONSULT. OBTAIN RECORDS WITH LABS AND CULTURES FROM [facility]. BLOOD CULTURES ON ADMISSION, STRICT I & OS, VERIFY HOME MEDS. GENTLE HYDRATION NS AT KVO (2) SOB (shortness of breath) Status: Acute (3) CHF (congestive heart failure) Status: Acute (4) Olecranon bursitis Status: Acute (5) Arthritis Status: Chronic (6) GERD (gastroesophageal reflux disease) Status: Chronic (7) Hypothyroidism Status: Chronic (8) Essential hypertension Status: Chronic (9) Hx of atrial fibrillation without current medication Status: Chronic (10) COPD (chronic obstructive pulmonary disease) Status: Chronic - Allergies Allergies/Adverse Reactions: Allergies Allergy/AdvReac Type Severity Reaction Status Date / Time adhesive tape AdvReac Verified 11/14/16 12:33 allopurinol AdvReac Verified 11/14/16 12:31 diltiazem AdvReac Verified 11/14/16 12:32
[2018-01-22 12:32] LABS: BLOOD UREA NITROGEN 20 mg/dL (7-18); CALCIUM 7.2 mg/dL (8.5-10.1); CARBON DIOXIDE 26.8 mmol/L (21-32); CHLORIDE 106 mmol/L (98-107); CREATININE 3.18 mg/dL (0.70-1.30); SODIUM 141 mmol/L (136-145); eGFR NON BLACK RACES 20 (>60)
[2018-01-22] MEDS ORDERED: POTASSIUM CHL 40 MEQ/NS 0.45% 500 ML IV PRN (13:05)
[2018-01-22] MEDS ORDERED: POTASSIUM CHL 60 MEQ/NS 0.45% 500 ML IV PRN (13:05)
[2018-01-22] MEDS ORDERED: POTASSIUM CHLORIDE LIQ 20 MEQ UDC PO PRN (13:05)
[2018-01-22] MEDS ORDERED: MICRO K EXTEN CAP 10 MEQ PO PRN (13:05)
[2018-01-22] MEDS ORDERED: K-DUR TAB 20 MEQ PO PRN (13:05)
[2018-01-22] MEDS ORDERED: KLOR-CON PO PRN (13:05)
[2018-01-22] MEDS ORDERED: K-RIDER 10 MEQ/NS 100 ML 10 MEQ/100 ML BAG IV PRN (13:05)
[2018-01-22] MEDS ORDERED: MAGNESIUM SULFATE 1 GRAM/100 mL PREMIX 1 GM/100 ML BAG IV PRN (14:12)
[2018-01-22 15:32] VITALS: BP 125/56
[2018-01-22] MEDS ORDERED: COLACE CAP 100 MG PO SCH (21:00)
--- NOTE | 2018-02-14 15:33 | PCM.DCPLAN ---
Discharge Summary - Admission Date Date of Admission: 01/21/18 - Discharge Date Discharge Date: 01/22/18 - Admission Diagnoses (1) Acute renal failure Status: Acute (2) CHF (congestive heart failure) Status: Acute (3) Olecranon bursitis Status: Acute (4) SOB (shortness of breath) Status: Acute (5) Atrial fibrillation status post cardioversion Status: Chronic (6) Essential hypertension Status: Chronic - Discharge Diagnoses Discharge Diagnosis: SAME ADMISSION DIAGNOSIS - Discharge Medications Discharge Medications: Home Medication List albuterol sulfate 2.5 mg INHALATION QID PRN 01/21/18 [History] aspirin 81 mg PO DAILY 01/21/18 [History] carvedilol 12.5 mg PO BID 01/21/18 [History] diclofenac sodium 1 ea TOPICAL QID PRN 01/21/18 [History] oxycodone-acetaminophen 1 tab PO Q4H PRN 01/21/18 [History] rabeprazole 20 mg PO DAILY 01/21/18 [History] Prescriptions: - Hospital Course Vital Signs: Temperature 98.0 F Pulse Rate [Left Brachial] 60 Pulse Rate 70 Respiratory Rate 20 Blood Pressure [Left Arm] 125/56 Blood Pressure [Right Arm] 126/79 Blood Pressure 133/87 O2 Sat by Pulse Oximetry 98 Latest Lab Results: Laboratory Last Values WBC 6.5 X10^3/uL (3.6-10.0) 01/22/18 04:20 RBC 3.41 X10^6/uL (4.7-6.0) L 01/22/18 04:20 Hgb 9.6 g/dL (13.5-18.0) L 01/22/18 04:20 Hct 28.5 % (42.0-54.0) L 01/22/18 04:20 MCV 83.5 fL (80.0-100.0) 01/22/18 04:20 MCH 28.3 pg (27.0-34.0) 01/22/18 04:20 MCHC 33.8 g/dL (33.0-35.0) 01/22/18 04:20 RDW 16.8 % (11.6-16.5) H 01/22/18 04:20 Plt Count 270 X10^3/uL (150.0-450.0) 01/22/18 04:20 MPV 8.3 fL (7.4-11.0) 01/22/18 04:20 Neut % (Auto) 66.2 % (42.0-75.0) 01/22/18 04:20 Lymph % (Auto) 15.1 % (21.0-51.0) L 01/22/18 04:20 Ritchie % (Auto) 16.5 % (0.0-13.0) H 01/22/18 04:20 Eos % (Auto) 1.8 % (0.9-2.9) 01/22/18 04:20 Baso % (Auto) 0.4 % (0.2-1.0) 01/22/18 04:20 Neut # (Auto) 4.3 x10^3/uL (2.2-4.8) 01/22/18 04:20 Lymph # (Auto) 1.0 X10^3/uL (1.3-2.9) L 01/22/18 04:20 Ritchie # (Auto) 1.1 x10^3/uL (0.3-0.8) H 01/22/18 04:20 Eos # (Auto) 0.1 x10^3/uL (0.0-0.2) 01/22/18 04:20 Baso # (Auto) 0.0 X10^3/uL (0.0-0.1) 01/22/18 04:20 Absolute Nucleated RBC 0.0 /100WBC 01/22/18 04:20 ESR 35 MM/HOUR (0-15) H 01/22/18 04:20 Sodium 141 mmol/L (136-145) 01/22/18 12:16 Corrected Sodium TNP 01/22/18 12:16 Potassium 3.3 mmol/L (3.5-5.1) L 01/22/18 12:16 Chloride 106 mmol/L (98-107) 01/22/18 12:16 Carbon Dioxide 26.8 mmol/L (21-32) 01/22/18 12:16 BUN 20 mg/dL (7-18) H 01/22/18 12:16 Creatinine 3.18 mg/dL (0.70-1.30) H 01/22/18 12:16 Est GFR (MDRD) Af Amer 25 (>60) L 01/22/18 12:16 Est GFR (MDRD) Non-Af 20 (>60) L 01/22/18 12:16 Glucose 103 mg/dL (65-99) H 01/22/18 12:16 Lactic Acid 0.8 mmol/L (0.4-2.0) 01/22/18 04:20 Calcium 7.2 mg/dL (8.5-10.1) L 01/22/18 12:16 Corrected Calcium 8.8 mg/dL (8.5-10.1) 01/22/18 04:20 Magnesium 1.2 mg/dL (1.7-2.9) L 01/22/18 13:25 Total Bilirubin 0.40 mg/dL (0.2-1.0) 01/22/18 04:20 AST 13 Units/L (15-37) L 01/22/18 04:20 ALT 8 Units/L (12-78) L 01/22/18 04:20 Alkaline Phosphatase 65 Units/L (46-116) 01/22/18 04:20 C-Reactive Protein 39.60 mg/L (0-3.0) H 01/22/18 04:20 Total Protein 5.4 g/dL (6.4-8.2) L 01/22/18 04:20 Albumin 2.1 g/dL (3.4-5.0) L 01/22/18 04:20 Globulin 3.3 g/dL (2.5-4.5) 01/22/18 04:20 Albumin/Globulin Ratio 0.6 Ratio (1.1-2.1) L 01/22/18 04:20 Specimen Type Clean catch urine 01/21/18 13:30 Urine Color Yellow (YELLOW) 01/21/18 13:30 Urine Appearance Clear (CLEAR) 01/21/18 13:30 Urine pH 6.5 (5.0 - 8.0) 01/21/18 13:30 Ur Specific [place] 1.005 (1.000-1.030) 01/21/18 13:30 Urine Protein 2+ (NEGATIVE) 01/21/18 13:30 Urine Glucose (UA) Negative (NEGATIVE) 01/21/18 13:30 Urine Ketones Negative (NEGATIVE) 01/21/18 13:30 Urine Occult Blood 1+ (NEGATIVE) 01/21/18 13:30 Urine Nitrite Negative (NEGATIVE) 01/21/18 13:30 Urine Bilirubin Negative (NEGATIVE) 01/21/18 13:30 Urine Urobilinogen Normal (NORMAL) 01/21/18 13:30 Ur Leukocyte Esterase Negative (NEGATIVE) 01/21/18 13:30 Urine RBC 0-2 /HPF (NONE SEEN) 01/21/18 13:30 Urine WBC 0-2 /HPF (NONE SEEN) 01/21/18 13:30 Ur Squamous Epith Cells Rare /HPF (NEGATIVE) 01/21/18 13:30 Urine Bacteria Trace /HPF (NEGATIVE) 01/21/18 13:30 Hyaline Casts Few /LPF (NEGATIVE) 01/21/18 13:30 Ur Culture Indicated? No/not indicated 01/21/18 13:30 Hospital Course: 77 WM DIRECT ADMIT FROM DR MATT OFFICE WITH CO SOB AND INCREASED LOWER EXTREMITY SWELLING. PT WAS RECENTLY DX WITH ACUTE RENAL FAILURE. PT HAD RIGHT OLECRANON BURSITIS WITH CELLULITIS APPROX 2 WEEKS AGO AND TREATED AT [facility] WITH ORTHO INTERVENTION, IV ATBX. 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 PT HAD ORTHO SURGERY WHILE THERE PER DR MANDEL. PT WAS RELEASED FROM [facility] ON 01/14 WITH FAMILY REPORTING CREAT ~3.8 ON PO BACTRIM. AFTER D/C PT HAS INCREASED SOB AND DIFFUSE SWELLING. PT STOPPED TAKING BACTRIM ON THURSDAY DUE TO N/V. PT CONTINUED WITH SWELLING, CREAT 08/24 3.47. PT'S BASLINE CREAT NORMAL 1. PT CXR DONE ON FRIDAY 08/18 WITH BASILAR EFFUSIONS. PMH AFIB, HTN, BPH, OA, DERMATITIS, COPD. PT ADMITTED FOR TREATMENT OF SOB, CHF EXACERBATION AN MANAGEMENT OF ACUTE MEDICATION INDUCED RENAL FAILURE. PATIENT WAS TRANSFERRED TO [facility] FOR FURTHER CARE AND EVALUATION. - Discharge Plan Disposition: [facility] Condition: Stable - Follow ups/Referrals Follow ups/Referrals: [facility] [Other] (PT TRANSFERRED VIA EMS TO [address] [place] [address] MENENDEZ) KRISTA RANGEL [Primary Care Provider] - 1 WEEK - Instructions
== END 2018-01-22 15:57 | disposition short-term general hospital (02) | DRG 684 ==
LOC: MED/SURG 09:55
PROVIDERS: ADMIT Internal Medicine; ATTEND Internal Medicine
CPT/HCPCS: 36415; 36569; 71010; 71045; 80048; 80053; 81001; 83605; 83735; 85025; 85652; 86140; 87040; 87070; 87077; 87186; 87205; 93005; 93010; 94760; A4217; A4222; C9113; J1940; J3480; J7030; J7613; J7626